=== PATIENT | male | born 1960 | race Caucasian/White ===

== ENCOUNTER 2016-12-29 03:02 | Emergency (ER) | payer BC ==
[~2016-12-29 03:02] MED LIST: ACET-1256 PO; AMOX500C3 PO
[2016-12-29] MEDS ORDERED: KETOROLAC TROMETHAMINE 30 MG/ML VIAL ONE (04:02)
[2016-12-29 04:47] LABS: MANUAL MICROSCOPIC REQUIRED? NO; REVIEW REQ? NO; URINE APPEARANCE CLEAR (CLEAR); URINE BILIRUBIN NEG (NEG); URINE COLOR YELLOW; URINE EPITHELIAL CELL AUTO 0-5 /lpf (0-5); URINE NITRITE NEG (NEG); URINE SPECIFIC GRAVITY 1.013 (1.000-1.030); UROBILINOGEN NEG (NEG)
[2016-12-29 05:23] LABS: ALT/SGPT 36 U/L (12-78); AST/SGOT 23 U/L (15-37); BLOOD UREA NITROGEN 14 mg/dl (7-18); BUN/CREATININE RATIO 14.7 (10-20); CARBON DIOXIDE 24 mmol/L (21-32); CHLORIDE 103 mmol/L (98-107); CREATININE 0.97 mg/dl (0.60-1.40); GLUCOSE 96 mg/dl (70-99); POTASSIUM 4.3 mmol/L (3.5-5.1); SODIUM 139 mmol/L (136-145)
[2016-12-29 05:25] LABS: ALKALINE PHOSPHATASE 79 U/L (45-117)
[2016-12-29 05:30] VITALS: BP 157/89; PULSE 62; O2SAT 95
[2016-12-29] MEDS ORDERED: AMOXICILLIN/CLAVULANATE TAB 875 MG TAB PO ONE (05:30)
[2016-12-29] MEDS ORDERED: AMOX875T PO (05:41)
[2016-12-29 06:42] LABS: BASO % 0.4 %; BASO ABS # 0.05 K/uL (0-0.2); COMPLETE YES; EOS % 2.2 %; HEMATOCRIT 42.1 % (42-52); IG% 0.4 %; LYMPH % 17.2 %; LYMPH ABS # 2.14 K/uL (1.2-3.4); MEAN CELL VOLUME 86.8 fL (80-100); MEAN CORPUSCULAR HEMOGLOBIN 31.3 pg (25-34); MEAN CORPUSCULAR HGB CONC 36.1 g/dl (32-36); MONO % 5.6 %; NEUT % 74.2 %; PLATELET COUNT 273 K/uL (130-400); RED BLOOD COUNT 4.85 M/uL (4.7-6.1); WHITE BLOOD COUNT 12.47 K/uL (4.8-10.8)
--- NOTE | 2016-12-29 06:48 | DIAGNOSTIC IMAGING REPORT ---
CT SCAN OF THE ABDOMEN AND PELVIS WITHOUT CONTRAST CLINICAL HISTORY: RIGH FLANK PAIN COMPARISON STUDY: 05/07/2014 TECHNIQUE: CT scan of the abdomen and pelvis was performed from the lung bases to the proximal femurs. Images are reviewed in the axial, sagittal, and coronal planes. IV contrast was not administered for this examination. CT DOSE: FINDINGS: Lower chest: There are minor bibasilar atelectatic changes. Liver: There is mild hepatic steatosis. No focal masses are visualized on this noncontrast study. Gallbladder: Unremarkable. Spleen: Normal in size and attenuation. Pancreas: Unremarkable. Adrenal glands: Unremarkable. Kidneys: There is a 2 cm hypodensity arising from the upper pole the right kidney posteriorly. This slightly exceeds water attenuation but nevertheless likely represents a cyst. There is no hydronephrosis. No renal calculi are visualized. No ureteral or bladder calculi are evident. Bowel: There are no transition zones indicate bowel obstruction. The appendix appears within normal limits. There is sigmoid wall thickening. There is infiltration of the perisigmoid fat. The findings are consistent with acute diverticulitis. There are no fluid collections to indicate a perisigmoid abscess. No free air is visualized. Peritoneum: There is no intraperitoneal free air or abdominal ascites. Vasculature: The abdominal aorta is normal in course and caliber. Adenopathy: None. Pelvic viscera: The bladder, and pelvic viscera are unremarkable. Skeletal structures: There is bilateral L5 spondylolysis. There is a grade 2/4 spondylolisthesis of L5 and S1. IMPRESSION: Acute sigmoid diverticulitis. Electronically signed by: Demetris Romo M.D. 12/29/2016 6:47 AM Dictated Date/Time: 12/29/2016 6:44 AM
--- NOTE | 2016-12-29 07:28 | EMERGENCY ROOM VISIT NOTE ---
History Report prepared by Mikki: Cedrick Gaona Under the Supervision of: Dr. Roxanna Diallo D.O. First contact with patient: 04:52 Chief Complaint: ABDOMINAL PAIN Stated Complaint: SEVERE ABDOMINAL PAIN,FLU LIKE SYMPTOMS History of Present Illness The patient is a 56 year old male who presents to the Emergency Room with complaints of intermittent lower abdominal pain that start yesterday afternoon. The patient describes the discomfort as pulsating in his lower abdomen. He notes that his symptoms worsened yesterday evening and his discomfort started to wrap around to his back. He also complains of cold-like symptoms including chills and body-aches. The patient notes that he had similar symptoms last month and after 4 days they resolved on their own. He denies nausea, vomiting, or urinary symptoms at this time. He has no history of UTIs. Source of History: patient Onset: yesterday afternoon Position: abdomen Quality: other (pulsating) Timing: intermittent, worsening Associated Symptoms: + back pain (radiation to back), + chills, No nausea, No urinary symptoms, No vomiting Note: Other associated symptoms: cold-like symptoms, body aches Review of Systems See HPI for pertinent positives & negatives. A total of 10 systems reviewed and were otherwise negative. Past Medical & Surgical Medical Problems: (1) Bacteremia (2) Dental infection (3) Stroke Family History Cancer Diabetes mellitus FH: heart disease Hypertension Social History Smoking Status: Never Smoker Alcohol Use: none Drug Use: none Marital Status: Housing Status: lives with family Occupation Status: employed Current/Historical Medications Scheduled Amoxicillin (Amoxil), 2,000 MG PO UD Amoxicillin & Pot Clavulanate (Augmentin 875-125 mg), 875 MG PO BID Allergies Coded Allergies: No Known Allergies (Verified , 12/29/16) Physical Exam Vital Signs Date Time Temp Pulse Resp B/P Pulse Ox O2 Delivery O2 Flow Rate FiO2 12/29/16 05:30 62 18 157/89 95 Room Air Pain Rating (0-10): 3.0 Physical Exam HEENT: Head - normocephalic and atraumatic Pupils are equal, round, and reactive to light. Extraocular eye muscles are intact, and sclera are anicteric. Nose - moist nasal mucosa without discharge. Mouth - moist buccal mucosa. Oropharynx is nonerythematous and there is no tonsillar exudate or edema noted. Neck: Supple; no JVD, nuchal rigidity, cervical lymphadenopathy. Heart: Regular rate and rhythm. There is a normal S1 and S2 with no murmurs, clicks, or gallops appreciated. Lungs: Clear to auscultation bilaterally with no wheezes, rales, or rhonchi. Abdomen: Soft, diffuse abdominal tenderness most concentrated in suprapubic region, nondistended, with good bowel sounds. There is no guarding, rigidity, or rebound noted. Extremities: No evidence of cyanosis, clubbing, or edema. There are easily palpable peripheral pulses. Skin: warm and dry with good turgor and no rashes. Medical Decision & Procedures ER Provider Diagnostic Interpretation: CT results as stated below per my review and radiologist interpretation: CT Abdomen & Pelvis: Acute diverticulitis involving the sigmoid colon. No abscess. No appendicitis, colitis, diverticulitis or bowel obstruction. No obstructive uropathy. Small exophytic cyst at right upper renal pole. Pancreas and gallbladder are unremarkable. 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 Laboratory Results 12/29/16 04:07 Red Blood Count 4.85, Mean Corpuscular Volume 86.8, Mean Corpuscular Hemoglobin 31.3, Mean Corpuscular Hemoglobin Concent 36.1, Mean Platelet Volume 10.0, Neutrophils (%) (Auto) 74.2, Lymphocytes (%) (Auto) 17.2, Monocytes (%) (Auto) 5.6, Eosinophils (%) (Auto) 2.2, Basophils (%) (Auto) 0.4, Neutrophils # (Auto) 9.26, Lymphocytes # (Auto) 2.14, Monocytes # (Auto) 0.70, Eosinophils # (Auto) 0.27, Basophils # (Auto) 0.05 12/29/16 04:07 Test 12/29/16 04:07 White Blood Count 12.47 K/uL (4.8-10.8) Red Blood Count 4.85 M/uL (4.7-6.1) Hemoglobin 15.2 g/dL (14.0-18.0) Hematocrit 42.1 % (42-52) Mean Corpuscular Volume 86.8 fL (80-100) Mean Corpuscular Hemoglobin 31.3 pg (25-34) Mean Corpuscular Hemoglobin Concent 36.1 g/dl (32-36) Platelet Count 273 K/uL (130-400) Mean Platelet Volume 10.0 fL (7.4-10.4) Neutrophils (%) (Auto) 74.2 % Lymphocytes (%) (Auto) 17.2 % Monocytes (%) (Auto) 5.6 % Eosinophils (%) (Auto) 2.2 % Basophils (%) (Auto) 0.4 % Neutrophils # (Auto) 9.26 K/uL (1.4-6.5) Lymphocytes # (Auto) 2.14 K/uL (1.2-3.4) Monocytes # (Auto) 0.70 K/uL (0.11-0.59) Eosinophils # (Auto) 0.27 K/uL (0-0.5) Basophils # (Auto) 0.05 K/uL (0-0.2) RDW Standard Deviation 41.3 fL (36.4-46.3) RDW Coefficient of Variation 13.0 % (11.5-14.5) Immature Granulocyte % (Auto) 0.4 % Immature Granulocyte # (Auto) 0.05 K/uL (0.00-0.02) Nucleated RBC Absolute Count (auto) 0.00 K/uL (0-0) Nucleated Red Blood Cells % 0.0 % Urine Color YELLOW Urine Appearance CLEAR (CLEAR) Urine pH 5.0 (4.5-7.5) Urine Specific [place] 1.013 (1.000-1.030) Urine Protein NEG (NEG) Urine Glucose (UA) NEG (NEG) Urine Ketones NEG (NEG) Urine Occult Blood TRACE (NEG) Urine Nitrite NEG (NEG) Urine Bilirubin NEG (NEG) Urine Urobilinogen NEG (NEG) Urine Leukocyte Esterase NEG (NEG) Urine WBC (Auto) 0 /hpf (0-5) Urine RBC (Auto) 0-4 /hpf (0-4) Urine Hyaline Casts (Auto) 0 /lpf (0-5) Urine Epithelial Cells (Auto) 0-5 /lpf (0-5) Urine Bacteria (Auto) NEG (NEG) Anion Gap 12.0 mmol/L (3-11) Estimated GFR () 100.7 Estimated GFR (Non- 86.9 BUN/Creatinine Ratio 14.7 (10-20) Calcium Level 9.0 mg/dl (8.5-10.1) Total Bilirubin 0.4 mg/dl (0.2-1) Direct Bilirubin 0.1 mg/dl (0-0.2) Aspartate Amino Transf (AST/SGOT) 23 U/L (15-37) Alanine Aminotransferase (ALT/SGPT) 36 U/L (12-78) Alkaline Phosphatase 79 U/L (45-117) Total Protein 8.0 gm/dl (6.4-8.2) Albumin 4.2 gm/dl (3.4-5.0) Lipase 147 U/L (73-393) Laboratory results per my review. Medications Administered Medications (Trade) Dose Ordered Sig/Deborah Route Start Time Stop Time Status Last Admin Dose Admin Amoxicillin/ Clavulanate Potassium (Augmentin Tab) 875 mg ONE ONCE PO 12/29/16 05:30 12/29/16 05:31 DC 12/29/16 05:29 875 MG Procedure Augmentin po ED Course 0402: Past medical records reviewed. The patient was evaluated in room B12. A complete history and physical exam was performed. An IV lock was initiated and labs are drawn as above. A urine specimen was obtained. The patient went for CT scan of the abdomen/pelvis. 0445: I reevaluated the patient at this time and he is resting. 0530: Ordered Augmentin tab 875 mg PO. 0634: Upon reevaluation, the patient is resting comfortable. I discussed findings and results with him. He verbalized agreement of the treatment plan. The patient was discharged home. Medical Decision The patient is a 56 year old male who presents to the ED with complaints of intermittent lower abdominal pain. Differential diagnoses include: cystitis, pyelonephritis, kidney stone, diverticulitis, urinary outlet obstruction. Labs reviewed by me: Bladder scan 116, white count 12.4, stable H&H, normal renal function, normal glucose, normal LFTs and lipase. Urinalysis is unremarkable. This is a 56-year-old male patient presents to the emergency department with worsening suprapubic abdominal pain. CT scan shows acute diverticulitis. The patient will be treated with oral Augmentin. He declined wanting anything stronger for pain to use at home. Impression Primary Impression: Sigmoid diverticulitis Scribe Attestation The scribe's documentation has been prepared under my direction and personally reviewed by me in its entirety. I confirm that the note above accurately reflects all work, treatment, procedures, and medical decision making performed by me. Departure Information Dispostion Home / Self-Care Prescriptions Amoxicillin & Pot Clavulanate (Augmentin 875-125 mg) 1 Tab Tab 875 MG PO BID, #20 TAB Prov: Roxanna Diallo D.Oumar 12/29/16 Forms Call Back Authorization, HOME CARE DOCUMENTATION FORM, IMPORTANT VISIT INFORMATION Patient Instructions Diverticulosis Diverticulitis, My [facility] Additional Instructions Rest. Take Augmentin twice a day. Use tylenol or motrin for pain Return to the ER if symptoms worsen.
== END 2016-12-29 05:48 | disposition home or self-care (01) ==
LOC: C.EDB 03:02
DX: K57.32 Diverticulitis of large intestine without perforation or abscess without bleeding (principal); Z86.73 Personal history of transient ischemic attack (TIA), and cerebral infarction without residual deficits; Z80.9 Family history of malignant neoplasm, unspecified; Z83.3 Family history of diabetes mellitus; Z82.49 Family history of ischemic heart disease and other diseases of the circulatory system

== ENCOUNTER 2018-01-01 05:39 | Inpatient (IN) | payer BC, OTHER ==
[2018-01-01] VITALS (10 sets, daily range): BP systolic 128–155; BP diastolic 72–87; PULSE 48–54; TEMP 36.4–36.6; O2SAT 96; Ht 162.6 cm; Wt 92.5 kg
[~2018-01-01] VITALS: Ht 162.6 cm; Wt 92.5 kg
[~2018-01-01 05:39] MED LIST changes: -ACET-1256 PO
--- NOTE | 2018-01-01 06:03 | EMERGENCY ROOM VISIT NOTE ---
History Report prepared by Mikki: Naseem Grant Under the Supervision of: Dr. Ana Rosa Mott D.O. First contact with patient: 05:44 Chief Complaint: CHEST PAIN Stated Complaint: CHEST PAINS Nursing Triage Summary: pt with chest pain that started yesterday after digging a hole to bury a dog. midsternal pain that radiates into back. pt took aspirin yesterday after pain started. pt reports pain woke him twice throughout the night. hx of pericarditis. History of Present Illness The patient is a 57 year old male who presents to the Emergency Room with complaints of constant chest pain beginning yesterday. The patient states that he was digging a hole yesterday to bury his dog. He notes that about an hour later, he experienced a sharp pain in the center of his chest that felt like it was going to his back. He reports that he took aspirin for his pain and states that his pain went away. He notes that he was able to go to bed tonight symptom free, but reports that he was woken up twice at 0300 and 0530 due to his chest pain. The patient states that his chest pain causes a pressure in his back. He also complains of lightheadedness and nausea. He notes that he has a history of pericarditis a few years ago and has been having more heartburn than usual for the last few weeks. He reports that he has not had heartburn that was this consistent before. The patient states that his current symptoms do not feel similar to his usual heartburn symptoms. He notes that his father and grandfather both had heart attacks around his age. He reports that he had a stress test done two years ago to monitor his cardiac health. Pt denies headache , change in vision, fevers, shortness of breath, cough, vomiting, diarrhea, pain with urination, change in bowels, leg edema, melena, and recent long travel. Source of History: patient Onset: yesterday Position: chest (center) Quality: pressure, sharp Timing: constant Modifying Factors (Relieving): other (aspirin) Associated Symptoms: + nausea, + back pain, No fevers, No headache, No cough , No SOB, No vomiting, No melena, No diarrhea, No urinary symptoms Note: He also complains of lightheadedness. He denies any change in vision, change in his bowels, and leg edema. Review of Systems See HPI for pertinent positives & negatives. A total of 10 systems reviewed and were otherwise negative. Past Medical & Surgical Medical Problems: (1) Bacteremia (2) Dental infection (3) Elevated troponin (4) Pericarditis (5) Stroke Family History Cancer Diabetes mellitus FH: heart disease Heart attack Hypertension Social History Smoking Status: Never Smoker Alcohol Use: none Drug Use: none Marital Status: Housing Status: lives with family Occupation Status: employed Current/Historical Medications Scheduled Amoxicillin (Amoxil), 2,000 MG PO UD Aspirin (Aspirin Ec), 81 MG PO DAILY Atorvastatin (Lipitor), 40 MG PO DAILY Allergies Coded Allergies: No Known Allergies (Verified , 01/01/18) Physical Exam Vital Signs Date Time Temp Pulse Resp B/P (MAP) Pulse Ox O2 Delivery O2 Flow Rate FiO2 01/01/18 07:30 53 18 146/91 97 Room Air 01/01/18 06:39 50 15 124/71 96 Room Air 01/01/18 06:24 52 20 148/91 97 Room Air 01/01/18 06:00 49 16 141/96 97 Room Air 01/01/18 05:53 50 01/01/18 05:45 97 Room Air 01/01/18 05:45 37.1 58 22 176/99 98 Room Air 01/01/18 05:45 99 Room Air Physical Exam GENERAL: alert, well appearing, well nourished, no distress, non-toxic EYE EXAM: normal conjunctiva, PERRL and EOM's grossly intact OROPHARYNX: no exudate, no erythema, lips, buccal mucosa, and tongue normal and mucous membranes are moist NECK: supple, no nuchal rigidity, no adenopathy, non-tender LUNGS: Clear to auscultation. Normal chest wall mechanics HEART: no murmurs, S1 normal and S2 normal ABDOMEN: abdomen soft, non-tender, normo-active bowel sounds, no masses, no rebound or guarding. BACK: Back is symmetrical on inspection and there is no deformity, no midline tenderness, no CVA tenderness. CHEST: Slight discomfort to palpation of right sternal border. SKIN: no rashes and no bruising UPPER EXTREMITIES: upper extremities are grossly normal. LOWER EXTREMITIES: No pitting edema. NEURO EXAM: Normal sensorium, cranial nerves II-XII grossly intact, normal speech, no gross weakness of arms, no gross weakness of legs. Medical Decision & Procedures ER Provider Diagnostic Interpretation: Radiology results have been interpreted by the radiologist and reviewed by me. CHEST ONE VIEW PORTABLE FINDINGS: Cardiac silhouette top normal in size. Lungs and pleural spaces clear. Osseous structures normal. Upper abdomen normal. IMPRESSION: 1. No acute cardiopulmonary disease. Electronically signed by: Jose Tomas M.D. 01/01/2018 6:17 AM Laboratory Results 01/01/18 05:45 Red Blood Count 4.50, Mean Corpuscular Volume 91.3, Mean Corpuscular Hemoglobin 31.6, Mean Corpuscular Hemoglobin Concent 34.5, Mean Platelet Volume 10.2, Neutrophils (%) (Auto) 47.4, Lymphocytes (%) (Auto) 39.5, Monocytes (%) (Auto) 6.3, Eosinophils (%) (Auto) 4.9, Basophils (%) (Auto) 1.4, Neutrophils # (Auto) 3.45, Lymphocytes # (Auto) 2.88, Monocytes # (Auto) 0.46, Eosinophils # (Auto) 0.36, Basophils # (Auto) 0.10 01/01/18 05:45 Test 01/01/18 05:45 White Blood Count 7.29 K/uL (4.8-10.8) Red Blood Count 4.50 M/uL (4.7-6.1) Hemoglobin 14.2 g/dL (14.0-18.0) Hematocrit 41.1 % (42-52) Mean Corpuscular Volume 91.3 fL (80-100) Mean Corpuscular Hemoglobin 31.6 pg (25-34) Mean Corpuscular Hemoglobin Concent 34.5 g/dl (32-36) Platelet Count 238 K/uL (130-400) Mean Platelet Volume 10.2 fL (7.4-10.4) Neutrophils (%) (Auto) 47.4 % Lymphocytes (%) (Auto) 39.5 % Monocytes (%) (Auto) 6.3 % Eosinophils (%) (Auto) 4.9 % Basophils (%) (Auto) 1.4 % Neutrophils # (Auto) 3.45 K/uL (1.4-6.5) Lymphocytes # (Auto) 2.88 K/uL (1.2-3.4) Monocytes # (Auto) 0.46 K/uL (0.11-0.59) Eosinophils # (Auto) 0.36 K/uL (0-0.5) Basophils # (Auto) 0.10 K/uL (0-0.2) RDW Standard Deviation 43.8 fL (36.4-46.3) RDW Coefficient of Variation 13.3 % (11.5-14.5) Immature Granulocyte % (Auto) 0.5 % Immature Granulocyte # (Auto) 0.04 K/uL (0.00-0.02) Prothrombin Time 10.1 SECONDS (9.0-12.0) Prothromb Time International Ratio 1.0 (0.9-1.1) Activated Partial Thromboplast Time 24.4 SECONDS (21.0-31.0) Partial Thromboplastin Ratio 0.9 Anion Gap 7.0 mmol/L (3-11) Est Creatinine Clear Calc Drug Dose 89.0 ml/min Estimated GFR () 103.9 Estimated GFR (Non- 89.6 BUN/Creatinine Ratio 17.3 (10-20) Calcium Level 8.6 mg/dl (8.5-10.1) Magnesium Level 2.1 mg/dl (1.8-2.4) Total Bilirubin 0.5 mg/dl (0.2-1) Aspartate Amino Transf (AST/SGOT) 23 U/L (15-37) Alanine Aminotransferase (ALT/SGPT) 37 U/L (12-78) Alkaline Phosphatase 59 U/L (45-117) Pro-B-Type Natriuretic Peptide 119 pg/ml (0-900) Total Protein 7.7 gm/dl (6.4-8.2) Albumin 3.8 gm/dl (3.4-5.0) Globulin 3.9 gm/dl (2.5-4.0) Albumin/Globulin Ratio 1.0 (0.9-2) Laboratory results per my review. Medications Administered Medications (Trade) Dose Ordered Sig/Deborah Route Start Time Stop Time Status Last Admin Dose Admin Nitroglycerin (Nitroglycerin 2% Oint) 1 inch NOW ONCE EXT 01/01/18 06:15 01/01/18 06:16 DC 01/01/18 06:12 1 INCH Famotidine (Pepcid 20mg Iv Push) 20 mg ONE STAT IV 01/01/18 06:22 35/18 06:23 DC 01/01/18 06:25 20 MG Acetaminophen (Tylenol Tab) 650 mg Q4H PRN PO 01/01/18 07:30 01/01/18 16:31 DC 01/01/18 13:25 650 MG Laboratory results per my review. ECG Per My Interpretation Indication: chest pain Rate (beats per minute): 49 Rhythm: sinus bradycardia Findings: T-wave inversion (lead 1, AVL, v5, and v6; inverted t in lead 1 and AVL were seen in old EKG), other (Normal axis, normal intervals, no acute ST elevation) Change: EKG #2: Sinus armando, 48, normal axis, normal intervals, inverted T waves again noted at 1 and AVL, T waves in v5 and v6 now upright. EKG #3: No significant change compared to EKG #2. ED Course 0548: The patient was evaluated in room A2. A complete history and physical exam was performed. 0615: Nitroglycerin 1 inch EXT 0622: Famotidine 20mg IV 0640: Fentanyl Citrate 50 mcg IV 0651: I reevaluated and updated the patient. He notes that the pressure is gone. 0708: I rechecked the patient. He currently has no symptoms. 0719: I spoke to Dr. Grier - Cardiology, [facility] 0722: Heparin Sodium/Dextrose 1 ea N/A 0724: Upon reevaluation, the patient is stable. I discussed the findings and the treatment plan with the patient. He expresses agreement and understanding. I spoke with Dr. Church of the [facility] Hospitalist [facility]. The patient will be evaluated for further management. 0741: I reevaluated and updated the patient. He said he had a brief episode of sharp chest pain that is now gone. Medical Decision Differential diagnosis: Etiologies such as cardiac ischemia, aortic dissection, pulmonary embolism, pneumonia, pneumothorax, musculoskeletal, infections, pericarditis, myocarditis , esophageal rupture, gastrointestinal, as well as others were entertained. Patient with concerning story and presentation here. No acute ST elevation to warrant activation of a heart alert. Patient hemodynamically stable. Patient' s symptoms improved following nitroglycerin. Patient took aspirin himself prior to arrival. EKG showed improved changes following administration of nitroglycerin. Blood pressure improved also. I do not suspect hypertensive urgency/emergency. I do not suspect dissection or other vascular pathology. I do not suspect PE. Patient with no shortness of breath, no hypoxia, no tachycardia. Patient given Pepcid as a precaution given recent admission of possible GERD, however I think given his description, and lack of association with food or specifically acidic diet, that this may be the initial presentation of his anginal equivalent. Patient's only risk factors none at this time are age and some family history. Patient agreeable with plan for additional medicine and cardiology evaluation with possible need for intervention including cardiac cath. Case discussed with admitting hospitalist as well as on-call [facility] cardiology. Patient started on heparin, despite prior history of small intracranial hemorrhage, discussed with admitting hospitalist, patient still started on heparin but without bolus. Patient never found to have aneurysm or other lesion precipitating bleed. I feel the benefits of anticoagulation in the setting of likely ACS outweigh the possible but low risk of recurrent intracranial hemorrhage. Beta-rosi not added due to patient's bradycardia and control blood pressure on nitroglycerin. Medication Reconcilliation Current Medication List: was personally reviewed by me Blood Pressure Screening Patient's blood pressure: Normal blood pressure Blood pressure disposition: Did not require urgent referral Consults Time Called: 709 Consulting Physician: Dr. Cherrie De Los Santos Cardiology, [facility] Returned Call: 07 I reviewed the patient's case with Dr. Cherrie Luevano, [facility]. Additional Consults: Time Called: 718 Consulted Physician: JUAN Restrepo Returned Call: 07 Additional Comments: I reviewed the patient's case with JUAN Restrepo. He will evaluate the patient for further management. Impression Primary Impression: NSTEMI (non-ST elevated myocardial infarction) Additional Impression: Chest pain Scribe Attestation The scribe's documentation has been prepared under my direction and personally reviewed by me in its entirety. I confirm that the note above accurately reflects all work, treatment, procedures, and medical decision making performed by me. Departure Information Dispostion Being Evaluated By Hospitalist Prescriptions Atorvastatin (LIPITOR) 40 Mg Tab 40 MG PO DAILY, #90 TAB 3 Refills Prov: Jorge Church M.D. 01/01/18 Aspirin (ASPIRIN EC) 81 Mg Tab 81 MG PO DAILY, #200 DOSE 3 Refills Prov: Jorge Church M.D. 01/01/18 Referrals Madhav Jang D.O. (PCP) Patient Instructions My [facility] Problem Qualifiers Additional Impression: Chest pain Chest pain type: unspecified Qualified Codes: R07.9 - Chest pain, unspecified
[2018-01-01] MEDS ORDERED: NITROGLYCERIN 2% OINTMENT 30GM TUBE EXT ONE (06:15)
--- NOTE | 2018-01-01 06:18 | DIAGNOSTIC IMAGING REPORT ---
CHEST ONE VIEW PORTABLE CLINICAL HISTORY: 57 years-old Male presenting with chest pain. TECHNIQUE: Portable upright AP view of the chest was obtained. COMPARISON: 09/20/2016. FINDINGS: Cardiac silhouette top normal in size. Lungs and pleural spaces clear. Osseous structures normal. Upper abdomen normal. IMPRESSION: 1. No acute cardiopulmonary disease. Electronically signed by: Jose Tomas M.D. 01/01/2018 6:17 AM Dictated Date/Time: 01/01/2018 6:17 AM
[2018-01-01] MEDS ORDERED: FAMOTIDINE 20MG/5ML IV PUSH IV STA (06:22)
[2018-01-01 06:26] LABS: BASO % 1.4 %; EOS % 4.9 %; EOS ABS # 0.36 K/uL (0-0.5); HEMATOCRIT 41.1 % (42-52); HEMOGLOBIN 14.2 g/dL (14.0-18.0); IG# 0.04 K/uL (0.00-0.02); LYMPH % 39.5 %; LYMPH ABS # 2.88 K/uL (1.2-3.4); MEAN CELL VOLUME 91.3 fL (80-100); MEAN CORPUSCULAR HEMOGLOBIN 31.6 pg (25-34); MEAN CORPUSCULAR HGB CONC 34.5 g/dl (32-36); MEAN PLATELET VOLUME 10.2 fL (7.4-10.4); MONO % 6.3 %; MONO ABS # 0.46 K/uL (0.11-0.59); NEUT % 47.4 %; NEUT ABS # 3.45 K/uL (1.4-6.5); PLATELET COUNT 238 K/uL (130-400); RED CELL DISTRIBUTION WIDTH CV 13.3 % (11.5-14.5); RED CELL DISTRIBUTION WIDTH SD 43.8 fL (36.4-46.3); WHITE BLOOD COUNT 7.29 K/uL (4.8-10.8)
[2018-01-01] MEDS ORDERED: FENTANYL CITRATE INJ 50 MCG/1 ML 2 ML VIAL IV STA ×2 (06:40→07:33)
[2018-01-01 06:46] LABS: ALBUMIN 3.8 gm/dl (3.4-5.0); CALCIUM 8.6 mg/dl (8.5-10.1); CREATININE 0.94 mg/dl (0.60-1.40); POTASSIUM 4.1 mmol/L (3.5-5.1)
[2018-01-01 06:55] LABS: TOTAL PROTEIN 7.7 gm/dl (6.4-8.2)
[2018-01-01] MEDS ORDERED: SODIUM CHLORIDE 0.9% 1000ML 1,000 ML IV STA (07:15)
[2018-01-01] MEDS ORDERED: POLYETHYLENE (MIRALAX) 17 GM PACK PO PRN (07:30)
[2018-01-01] MEDS ORDERED: ONDANSETRON INJ 2 MG/ML 2 ML VIAL IV PRN (07:30)
[2018-01-01 07:36] LABS: PTT PATIENT 24.4 SECONDS (21.0-31.0)
[2018-01-01] MEDS ORDERED: LORAZEPAM 0.5 MG TAB PO PRN (07:45)
[2018-01-01] MEDS ORDERED: MoRPHine SULFATE 4 MG/ML 1 ML CARP\\VIAL IV PRN (07:45)
[2018-01-01] MEDS ORDERED: METOPROLOL TARTRATE 1 MG/ML VIAL IV PRN (07:45)
[2018-01-01] MEDS ORDERED: NITROGLYCERIN 0.4 MG SL PER TAB CHARGE SL PRN (07:45)
[2018-01-01] MEDS ORDERED: MoRPHine SULFATE 2 MG/ML CARP IV PRN (07:45)
--- NOTE | 2018-01-01 08:13 | History and Physical ---
History & Physical Date & Time of Service: Jan 01, 2018 at 08:07 Chief Complaint: Chest Pains Primary Care Physician: Madhav Jang D.O. History of Present Illness Patient presents to the ER after stuttering chest pain radiating to his back over the last 1 day. Patient states that he also had a few days worth of preceding indigestion. One day prior to admission the patient was digging in his yard where he developed some chest discomfort he took some aspirin and it went away. Then throughout the evening hours at night he was awoken on 2 occasions with chest pain radiating to his back. Upon presentation to the ER he had bradycardia with lateral T-wave inversions associated with some chest pain which then resolved with nitroglycerin paste and a T-wave inversions also resolved. He is a minorly elevated troponin on presentation currently is symptom-free he has a significant past history of a posterior fossa hemorrhage in 2009 without any significant pathology or trauma to explain. 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 Patient has a family history of his father having an KS at age 57 he has not had any tobacco exposure his cholesterol is moderate at this time with a total of 215 and LDL of 133 Family History Cancer Diabetes mellitus FH: heart disease Heart attack Hypertension Social History Smoking Status: Never Smoker Drug Use: none Marital Status: Housing status: lives with family Occupational Status: employed Immunizations History of Influenza Vaccine: No History of Tetanus Vaccine?: Unknown History of Pneumococcal: No History of Hepatitis B Vaccine: Unknown Allergies Coded Allergies: No Known Allergies (Verified , 01/01/18) Home Medications Scheduled Amoxicillin (Amoxil), 2,000 MG PO UD Review of Systems ROS: well nourished well developed. No double vision blurry vision patient has a headache from his nitroglycerin No problems with speech or swallowing No palpitations, but has had substernal chest pain and pressure radiating to his back No Wheezing or breathing issues No abdominal pain nausea vomiting diarrhea changes in appetite or weight No burning urine urine frequency or changes in color No focal joint pain or muscle pain No skin rashes or oral lesions No unusual bruising or bleeding No focused back pain or numbness or loss of strength No changes in memory or confusion Physical Exam Vital Signs Date Time Temp Pulse Resp B/P (MAP) Pulse Ox O2 Delivery O2 Flow Rate FiO2 01/01/18 07:30 53 18 146/91 97 Room Air 01/01/18 06:39 50 15 124/71 96 Room Air 01/01/18 06:24 52 20 148/91 97 Room Air 01/01/18 06:00 49 16 141/96 97 Room Air 01/01/18 05:53 50 01/01/18 05:45 97 Room Air 01/01/18 05:45 37.1 58 22 176/99 98 Room Air 01/01/18 05:45 99 Room Air General Appearance: WD/WN, no apparent distress Head: normocephalic, atraumatic Eyes: normal inspection, PERRL, EOMI, sclerae normal (Straight) Neck: supple, no JVD Respiratory/Chest: chest non-tender, lungs clear, normal breath sounds Cardiovascular: regular rate, rhythm, no murmur Abdomen/GI: normal bowel sounds, non tender, soft Back: no CVA tenderness, no muscle spasm Extremities/Musculoskelatal: no pedal edema, normal range of motion Neurologic/Psych: alert, oriented x 3 Skin: normal color, warm/dry, no rash Diagnostics Laboratory Results Results Past 24 Hours Test 01/01/18 05:45 Range/Units White Blood Count 7.29 4.8-10.8 K/uL Red Blood Count 4.50 4.7-6.1 M/uL Hemoglobin 14.2 14.0-18.0 g/dL Hematocrit 41.1 42-52 % Mean Corpuscular Volume 91.3 80-100 fL Mean Corpuscular Hemoglobin 31.6 25-34 pg Mean Corpuscular Hemoglobin Concent 34.5 32-36 g/dl Platelet Count 238 130-400 K/uL Mean Platelet Volume 10.2 7.4-10.4 fL Neutrophils (%) (Auto) 47.4 % Lymphocytes (%) (Auto) 39.5 % Monocytes (%) (Auto) 6.3 % Eosinophils (%) (Auto) 4.9 % Basophils (%) (Auto) 1.4 % Neutrophils # (Auto) 3.45 1.4-6.5 K/uL Lymphocytes # (Auto) 2.88 1.2-3.4 K/uL Monocytes # (Auto) 0.46 0.11-0.59 K/uL Eosinophils # (Auto) 0.36 0-0.5 K/uL Basophils # (Auto) 0.10 0-0.2 K/uL RDW Standard Deviation 43.8 36.4-46.3 fL RDW Coefficient of Variation 13.3 11.5-14.5 % Immature Granulocyte % (Auto) 0.5 % Immature Granulocyte # (Auto) 0.04 0.00-0.02 K/uL Prothrombin Time 10.1 9.0-12.0 SECONDS Prothromb Time International Ratio 1.0 0.9-1.1 Activated Partial Thromboplast Time 24.4 21.0-31.0 SECONDS Partial Thromboplastin Ratio 0.9 Sodium Level 138 136-145 mmol/L Potassium Level 4.1 3.5-5.1 mmol/L Chloride Level 105 98-107 mmol/L Carbon Dioxide Level 26 21-32 mmol/L Anion Gap 7.0 3-11 mmol/L Blood Urea Nitrogen 16 7-18 mg/dl Creatinine 0.94 0.60-1.40 mg/dl Est Creatinine Clear Calc Drug Dose 89.0 ml/min Estimated GFR () 103.9 Estimated GFR (Non- 89.6 BUN/Creatinine Ratio 17.3 10-20 Random Glucose 86 70-99 mg/dl Calcium Level 8.6 8.5-10.1 mg/dl Magnesium Level 2.1 1.8-2.4 mg/dl Total Bilirubin 0.5 0.2-1 mg/dl Aspartate Amino Transf (AST/SGOT) 23 15-37 U/L Alanine Aminotransferase (ALT/SGPT) 37 12-78 U/L Alkaline Phosphatase 59 45-117 U/L Troponin I 0.080 0-0.045 ng/ml Pro-B-Type Natriuretic Peptide 119 0-900 pg/ml Total Protein 7.7 6.4-8.2 gm/dl Albumin 3.8 3.4-5.0 gm/dl Globulin 3.9 2.5-4.0 gm/dl Albumin/Globulin Ratio 1.0 0.9-2 CXR normal (Comparison to previous portable does not reveal significant mediastinal widening) other ( bradycardia and lateral T-wave inversions which resolved) Impression Assessment and Plan 57-year-old male with dynamic EKG changes positive troponin on serum testing Coronary artery disease this patient will be admitted to our facility nitroglycerin paste for continued emergent echo be undertaken to determine if there is any regional wall abnormalities also to evaluate his aortic root. The radiation of pain to his back bring some concern for dissection and he has had previous endocarditis. We will hold off on heparin at this time as the patient is symptom-free and his EKG changes have resolved given the fact that we are evaluating for dissection and also his previous history of intercerebral bleed so we will watch him cautiously. If his headache continues to worsen with his nitroglycerin we may remove the nitroglycerin and/or get a CT scan of his brain. Currently DVT prevention initially was to be heparin drip will convert this to heparin subcu Patient is a full code Of note patient has no neurological deficits from his previous posterior fossa hemorrhage Advanced Directives Existing Living Will: No Existing Power of Softball Umpire: No Resuscitation Status VTE Prophylaxis Will order VTE Prophylaxis: Yes
[2018-01-01] MEDS ORDERED: ASPIRIN 324 MG CHEW PO STA (08:47)
[2018-01-01] MEDS: ACETAMINOPHEN 325 MG TAB PO PRN ×2 (08:59→13:25)
[2018-01-01] MEDS ORDERED: ASPIRIN 325 MG ECTAB PO SCH (09:00)
--- NOTE | 2018-01-01 09:52 | ECHOCARDIOGRAM REPORT ---
*NOTICE TO RECEIVING DEMOCRAT AGENCY This information is strictly Confidential and protected under [place] law. [place] law prohibits you from making any further disclosure of this information unless further disclosure is expressly permitted by the written consent of the person to whom it pertains or is authorized by law. A general authorization for the release of medical or other information is not sufficient for this purpose. Hospital accepts no responsibility if the information is made available to any other person, INCLUDING THE PATIENT. Interpretation Summary * Name: AVELINA LIMON Study Date: 01/01/2018 07:58 AM BP: 124/71 mmHg * Patient Location: [facility] HR: 52 * : 1960 (M/d/yyyy) Gender: Male Height: 67 in * Age: 57 yrs Ethnicity: CA Weight: 195 lb * Ordering Physician: Jorge Church * Referring Physician: Self, Referred * Performed By: Lashanda Zamorano RCS * * Reason For Study: CHEST PAIN * BSA: 2.0 m2 * -- Conclusions -- * The left ventricle is normal in size. * There is mild concentric left ventricular hypertrophy. * Left ventricular systolic function is normal. * LVEF 65% * The left ventricular wall motion is normal. * The right ventricle is normal in size and function. * The right ventricular systolic function is normal as assessed by tricuspid annular plane systolic excursion (TAPSE) (normal >1.5 cm). * The aortic valve is tricuspid. The leaflet thickness if normal. There is no aortic stenosis, and no significant insufficiency. * Mild aortic regurgitation. * PHT > 700 ms * Normal diastolic function. Procedure Details * A complete two-dimensional transthoracic echocardiogram was performed (2D, M-mode, Doppler and color flow Doppler). Left Ventricle * The left ventricle is normal in size. * There is mild concentric left ventricular hypertrophy. * Left ventricular systolic function is normal. * LVEF 65% * The left ventricular wall motion is normal. Right Ventricle * The right ventricle is normal in size and function. * The right ventricular systolic function is normal as assessed by tricuspid annular plane systolic excursion (TAPSE) (normal >1.5 cm). Atria * The left atrial size is normal. * Right atrial size is normal. Mitral Valve * The mitral valve is grossly normal. * There is mild mitral regurgitation. Tricuspid Valve * The tricuspid valve is not well visualized, but is grossly normal. * There is trace tricuspid regurgitation. Aortic Valve * The aortic valve is tricuspid. The leaflet thickness if normal. There is no aortic stenosis, and no significant insufficiency. * Mild aortic regurgitation. * PHT > 700 ms Pulmonic Valve * The pulmonic valve is not well seen, but is grossly normal. * Trace pulmonic valvular regurgitation. Great Vessels * Mild aortic root dilatation. Pericardium/Pleural * There is no pericardial effusion. Great Vessels * Normal inferior vena cava size and collapsability with sniff indicates a normal right atrial pressure of 3 mmHg Left Ventricular Diastolic Function * Normal diastolic function. MMode 2D Measurements and Calculations IVSd 1.3 cm IVSs 1.7 cm LVIDd 5.0 cm LVIDs 3.2 cm LVPWd 1.3 cm LVPWs 1.7 cm IVS/LVPW 1.1 FS 35.9 % EDV(Teich) 118.3 ml ESV(Teich) 41.2 ml EF(Teich) 65.2 % EDV(cubed) 125.0 ml ESV(cubed) 33.0 ml EF(cubed) 73.6 % % IVS thick 27.0 % % LVPW thick 34.0 % LV mass(C)d 263.8 grams LV mass(C)dI 131.9 grams/m\S\2 LV mass(C)s 214.1 grams LV mass(C)sI 107.0 grams/m\S\2 SV(Teich) 77.1 ml SI(Teich) 38.5 ml/m\S\2 SV(cubed) 92.0 ml SI(cubed) 46.0 ml/m\S\2 Ao root diam 3.7 cm Ao root area 10.8 cm\S\2 ACS 2.6 cm LA dimension 3.2 cm LA/Ao 0.87 LVOT diam 2.0 cm LVOT area 3.3 cm\S\2 LVAd ap4 34.4 cm\S\2 LVLd ap4 8.4 cm EDV(MOD-sp4) 113.6 ml EDV(sp4-el) 119.3 ml LVAs ap4 19.7 cm\S\2 LVLs ap4 6.8 cm ESV(MOD-sp4) 48.2 ml ESV(sp4-el) 48.1 ml EF(MOD-sp4) 57.5 % EF(sp4-el) 59.7 % LVAd ap2 37.6 cm\S\2 LVLd ap2 8.7 cm EDV(MOD-sp2) 131.0 ml EDV(sp2-el) 137.9 ml LVAs ap2 20.6 cm\S\2 LVLs ap2 6.7 cm ESV(MOD-sp2) 54.5 ml ESV(sp2-el) 53.5 ml EF(MOD-sp2) 58.4 % EF(sp2-el) 61.2 % LVLd %diff 3.2 % EDV(MOD-bp) 122.5 ml LVLs %diff -1.52 % ESV(MOD-bp) 51.7 ml EF(MOD-bp) 57.8 % SV(MOD-sp4) 65.4 ml SI(MOD-sp4) 32.7 ml/m\S\2 SV(MOD-sp2) 76.5 ml SI(MOD-sp2) 38.3 ml/m\S\2 SV(MOD-bp) 70.8 ml SI(MOD-bp) 35.4 ml/m\S\2 SV(sp4-el) 71.3 ml SI(sp4-el) 35.6 ml/m\S\2 SV(sp2-el) 84.4 ml SI(sp2-el) 42.2 ml/m\S\2 Doppler Measurements and Calculations MV E max lakesha 92.7 cm/sec MV A max lakesha 66.9 cm/sec MV E/A 1.4 MV P1/2t max lakesha 94.9 cm/sec MV P1/2t 104.0 msec MVA(P1/2t) 2.1 cm\S\2 MV dec slope 267.3 cm/sec\S\2 MV dec time 0.26 sec Ao V2 max 138.8 cm/sec Ao max PG 7.7 mmHg Ao max PG (full) 1.7 mmHg MELL(V,A) 2.9 cm\S\2 MELL(V,D) 2.9 cm\S\2 AI max lakesha 455.3 cm/sec AI max PG 83.0 mmHg AI dec slope 149.8 cm/sec\S\2 AI P1/2t 890.1 msec LV V1 max PG 6.0 mmHg LV V1 max 122.7 cm/sec MR max lakesha 576.3 cm/sec MR max PG 132.9 mmHg PA V2 max 73.3 cm/sec PA max PG 2.2 mmHg TR max lakesha 256.8 cm/sec
[2018-01-01] MEDS: NITROGLYCERIN 2% OINTMENT 30GM TUBE EXT SCH ×2 (09:53→13:00)
--- NOTE | 2018-01-01 10:53 | CARDIOLOGY CONSULTATION ---
DATE OF CONSULTATION: 01/01/2018 REQUESTING: Dr. Jorge Church. LOADING DOCK HELPER: Luis Grier D.O., [facility] Cardiology. REASON FOR CONSULTATION: Chest discomfort, non-ST elevation myocardial infarction. Dear Jorge, Thank you for requesting cardiology consultation on Lane with regards to his chest discomfort and scapular discomfort along with minimally elevated troponin. He notes yesterday he was digging a hole, he noted some shortness of breath and was more fatigued doing activity that normally would not bother him. He came inside, his noted that he did not look very good and about in 45 minutes to an hour later he complained of central chest tightness with radiation into his scapula. It then resolved after a couple of minutes. He went to bed, he had 2 episodes that woke him overnight from his sleep that were very similar to the daytime episodes on Monday. To come to the hospital, his drove him, he had to climb a flight of stairs, he was more dyspneic than usual and he notes in retrospect over the last week or so he has had more epigastric discomfort and heartburn symptoms and belching which he has never really had in the past. He denies any lightheadedness, dizziness, presyncope, syncope. He denies any lower extremity edema. He denied any diaphoresis or with the episodes. He denies any bleeding, bruising, dark stools, black stools, fevers, chills, sweats, cough, productive sputum. His appetite is stable. His weight is stable. The rest of review of systems otherwise negative. He has no plans for upcoming surgery, tooth extraction or colonoscopy. PAST MEDICAL HISTORY: 1. History of pericarditis after a dental procedure. 2. Episode of fevers and chills, August 2016 with negative blood cultures concerning for systemic infection, post tooth cleaning. 3. Echocardiogram this admission with normal biventricular size and function, mild aortic insufficiency and mild mitral regurgitation. FAMILY HISTORY: Premature heart disease. FAMILY HISTORY: Dad had a heart attack in his late 50s and is still living. His paternal grandfather also had a heart attack in his early 60s. SOCIAL HISTORY: He denies any tobacco. He does drink alcohol. 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 He is . ALLERGIES: No known drug allergies. OUTPATIENT MEDICATIONS: Amoxicillin p.r.n. for dental procedures. REVIEW OF SYSTEMS: In the Emergency Room, he had chest discomfort. He was given sublingual nitroglycerin with improvement in his dynamic T-wave inversions. He has T-wave inversions in I, aVL, V5 and V6, which were worse upon admission at 5:45 in the morning and then improved with nitroglycerin. PHYSICAL EXAMINATION: GENERAL: He is awake, alert, oriented x3. He is in no acute distress. He is well-appearing male, looks his stated age. VITAL SIGNS: His heart rate is 52, respirations 16, blood pressure 155/87. NECK: 2+ carotid upstrokes, no evidence of carotid bruits. Jugular venous pressure appeared normal. HEENT: Sclerae is anicteric. His hearing is normal. LUNGS: Clear to auscultation bilaterally. No rales, rhonchi or wheezing. HEART: Regular rate and rhythm. No appreciable murmurs, rubs or gallops. ABDOMEN: Soft, nontender, nondistended. Positive bowel sounds. EXTREMITIES: No clubbing, cyanosis or edema. His affect 2+ dorsalis pedal pulses. PSYCHIATRIC: His affect appeared appropriate. NEUROLOGIC: Grossly nonfocal. LABORATORY STUDIES: Hemoglobin 14.2, platelet count 238. His complete metabolic profile was normal. Troponin 0.08. Coags are normal. IMAGING DATA: EKG sinus rhythm, T-wave inversions I, aVL, V5 and V6, concerning for lateral ischemia and then Q changed to sinus rhythm to sinus bradycardia. Chest x-ray - no active disease. Echocardiogram - as discussed above. IMPRESSION: 1. Non-ST elevation myocardial infarction with anginal symptoms since yesterday. 2. Hypertension, here in the hospital, but no outpatient history of hypertension. 3. History of pericarditis after a dental cleaning. 4. History of fevers and chills and sweats with negative blood cultures in 2016 after a dental cleaning. 5. Preserved left ventricular systolic function without regional wall motion abnormalities. 6. Mild aortic insufficiency and mild mitral insufficiency. As I discussed with Lane and his family, his symptoms sound very good for angina. I discussed with them as Dr. Church had discussed with him that we should proceed with cardiac catheterization to define his coronary anatomy. I discussed the risks and benefits of cardiac catheterization, risks including but not limited to bleeding or infection of the puncture site, damage to his radial or femoral artery, risk of contrast induced nephropathy and allergic reaction to contrast were discussed. He has had contrast in the past with no issues. We also discussed a 1 in 1000 risk with intervention of a heart attack, stroke or dying with the procedure. They wish to proceed. He has been started on aspirin. There is no room for beta blockers given his relative bradycardia. He should be started on high intensity statin therapy assuming he has coronary disease. In addition, if his blood pressure remains elevated, LARRY inhibitor therapy should be added to his medical regimen. The field laborer was notified of to add him on today. He is currently pain free and will continue with nitro paste through the catheterization. I will continue to follow with you. Thank you for allowing us to participate in his care.
[2018-01-01] MEDS ORDERED: MIDAZOLAM HCL 1 MG/ML 2ML VIAL ONE (11:51)
[2018-01-01] MEDS ORDERED: HEPARIN SOD (PORCINE) 1000 UNIT/ML 10 ML VIAL ONE (11:51)
[2018-01-01] MEDS ORDERED: NITROGLYCERIN/D5W 100MCG/ML 20ML SYR ONE (11:51)
[2018-01-01] MEDS ORDERED: FENTANYL CITRATE INJ 50 MCG/1 ML 2 ML VIAL ONE (11:51)
[2018-01-01] MEDS ORDERED: NiCARDipine HCL INJ 2.5 MG/ML 10 ML AMP ONE (11:51)
[2018-01-01] MEDS ORDERED: D5W AND 1/2NSS 1,000 ML IV SCH (12:52)
[2018-01-01] MEDS ORDERED: HEPARIN SOD 5000 UNIT/0.5 ML CARP SQ SCH (14:00)
--- NOTE | 2018-01-01 15:01 | CARDIAC CATH REPORT ---
INDICATION: Chest pain suspicious of angina with positive troponin in a 57-year-old male with a family history of premature coronary artery disease. The patient is not being treated for hypertension, hypercholesterolemia, and diabetes mellitus. PROCEDURES PERFORMED: Left heart catheterization, coronary cineangiography, left ventriculography, radiological interpretation and supervision, iFR. METHOD: Upon arrival in the production laborer, the patient was prepped and draped in usual sterile fashion. After local infiltration of 2% lidocaine, a 6-Faroese sheath was placed in the right radial artery. Intra-arterial nitroglycerin was administered, sheath was aspirated and flushed. A 5-Faroese PIG catheter was advanced over wire under fluoroscopic guidance to the central circulation where it was aspirated and flushed and after confirmation of adequate waveform, it was advanced into the left main. Cineangiograms of the left coronary artery obtained and reviewed. The catheter was then used to engage the origin of the right coronary artery. Cineangiograms of the right coronary artery obtained and reviewed. The catheter was removed from body over the wire where sheath was aspirated and flushed. We did an iFR. A 6-Faroese EBU 3-/2 guiding catheter was advanced over wire under fluoroscopic guidance to the central circulation where it was aspirated and flushed. After confirmation of adequate waveforms, advanced into the left main. Cineangiograms of the left anterior descending artery change obtained and reviewed. Intravenous heparin was administered. A Verrata wire was advanced under fluoroscopic guidance across the area of stenosis of the apical LAD. iFR was measured on 3 occasions. Wire was removed and the artery, guide from the left main. The sheath was aspirated and flushed. A 6-Faroese pigtail was used to cross the aortic valve in retrograde fashion. Left ventricular end diastolic pressure was measured. Left ventriculography was performed using 36 mL of contrast dye over 3 seconds less than 450 PSI. Catheter removed from left ventricle to the aorta and continuous pressure monitoring for the body over the wire. The sheath was aspirated and flushed. A compression device was applied over the right radial artery. The patient returned to his room in good condition. COMPLICATIONS: None. FINDINGS: Left main is normal. Left circumflex marginal posterolateral branches on the PDA arising (distal circumflex were all free of significant disease). Left anterior descending artery is moderate in caliber. A 60% stenosis noted in the mid LAD immediately distal to a large first diagonal branch. iFR associated with this lesion was 93-94%. An apical subtotal occlusion of the LAD is noted. First diagonal branch is free of significant disease. Right coronary artery is small and nondominant with no significant stenosis present. Left ventricular end-diastolic pressure is mildly elevated at 20 mmHg. No significant aortic valve gradient demonstrated. Left ventriculography demonstrates normal left ventricular size and function, ejection fraction estimated at 55% with mild inferior hypokinesis demonstrated. IMPRESSION: Noncritical mid left anterior descending coronary artery stenosis, possibly "roughed up" within very apical subtotal occlusion of the left anterior descending coronary artery to suggest a possible thrombotic event. RECOMMENDATIONS: 1. Aspirin, consider Plavix in light of prior intracranial hemorrhage. 2. Cholesterol-lowering therapy with a moderate to high dose statins (P3 guidelines). 3. No intervention warranted at this time.
[2018-01-01] MEDS ORDERED: ASPI81TA28 PO (15:10)
[2018-01-01] MEDS ORDERED: LPT/40 PO (15:10)
--- NOTE | 2018-01-01 15:12 | Discharge Instructions ---
Discharge Instructions Date of Service Jan 01, 2018. Admission Reason for Admission: Elevated Troponin Discharge Discharge Diagnosis / Problem: coroanary artery disease Discharge Goals Goal(s): Diagnostic testing, Therapeutic intervention Activity Recommendations Activity Limitations: as noted below Lifting Limitations: gradually increase as tolerated . Instructions / Follow-Up Instructions / Follow-Up Home Care: * Take your medications exactly as directed. Don't skip doses. * Remember that recovery after a heart attack takes time. Plan to rest for at lease 4-8 weeks while you recover. Then return to normal activity when your doctor says it's okay. * Ask your doctor about joining a heart rehabilitation program. * Tell your doctor if you are feeling depressed. Feelings of sadness are common after a heart attack, but it is important that you speak to someone if you are feeling overwhelmed by these feelings. * If you are having chest pain, call 911 for an ambulance. Do NOT drive yourself to the hospital. * Ask your family members to learn CPR. * Learn to take your own blood pressure and pulse. Keep a record of your results. Ask your doctor when you should seek emergency medical attention. He or she will tell you which blood pressure reading is dangerous. Lifestyle Changes: * Maintain a healthy weight. Get help to lose any extra pounds. * Cut back on salt. * Limit canned, dried, packaged, and fast foods. * Don't add salt to your food. * Season foods with herbs instead of salt when you cook. * Break the smoking habit. Enroll in a stop-smoking program to improve your chances of success. * Limit fatty foods. * Ask your doctor about having your lipid levels checked regularly. * Build up your activity according to your doctor's recommendation. * Ask your doctor when it's okay to resume sexual activity. * Tell your doctor about any erectile dysfunction (ED) medication you are taking. Some ED medications are not safe if you take certain heart medications. * Try to manage stress. Follow Up: It is important for you to keep your follow up appointments with your medical provider. Current Hospital Diet Patient's current hospital diet: AHA Diet (Heart Healthy) Discharge Diet Recommended Diet: AHA Diet (Heart Healthy) Pending Studies Studies pending at discharge: no Medical Emergencies . Who to Call and When: Medical Emergencies: If at any time you feel your situation is an emergency, please call 911 immediately. Call 911 immediately or go to your nearest Emergency Room if you experience any of the following: Warning Signs and Symptoms of a Heart Attack * Chest pain that is not relieved by medication * Shortness of breath . Non-Emergent Contact Non-Emergency issues call your: Primary Care Provider, Zmt Operator Call Non-Emergent contact if: temperature is above 101, your pain is unusual for you . . "Provider Documentation" section prepared by Jorge Church. . AMI Core Measures Reason no ASA as I/P: Treatment provided - N/A Reason no ASA at D/C: Treatment provided - N/A Reason no statin as I/P: Treatment provided - N/A Reason no statin at D/C: Treatment provided - N/A
--- NOTE | 2018-01-01 15:41 | Discharge Summary ---
Discharge Summary Date of Service Jan 01, 2018. 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 Medication Reconciliation New Medications: Aspirin (Aspirin Ec) 81 Mg Tab 81 MG PO DAILY, #200 DOSE 3 Refills Atorvastatin (Lipitor) 40 Mg Tab 40 MG PO DAILY, #90 TAB 3 Refills Continued Medications: Amoxicillin (Amoxil) 500 Mg Cap 2000 MG PO UD, #21 CAP TAKE BEFORE DENTIST PROCEDURE Discharge Exam pt was seen in afternoon, had no complaints, no further chest pain and is awaiting final cuff release from right wrist, did explain findings with pt, spouse and daughter, all questions answered Hospital Course 57-year-old male with dynamic EKG changes positive troponin on serum testing, 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 this did not disturb flow and medical management was recommended CAD will have aspirin low dose given history of intra cranial bleed, and start atorvostatin for secondary risk prevention, will not use Beta orsi due to relative low resting heart rate Patient is a full code Of note patient has no neurological deficits from his previous posterior fossa hemorrhage Total Time Spent: Greater than 30 minutes This includes examination of the patient, discharge planning, medication reconciliation, and communication with other providers. Discharge Instructions Please refer to the electronic Patient Visit Report (Discharge Instructions) for additional information. Additional Copies To Madhav Jang D.O.; Luis Grier, DO
== END 2018-01-01 16:29 | disposition home or self-care (01) | DRG 287 ==
LOC: C.EDB 05:39 → C.2E 07:32 → ENRESERV 07:56
PROVIDERS: ADMIT Internal Medicine; ATTEND Internal Medicine
PROC: 4A023N7 Measurement of Cardiac Sampling and Pressure, Left Heart, Percutaneous Approach (ICD-10-PCS; principal; 2018-01-01 12:00)
PROC: B215YZZ Fluoroscopy of Left Heart using Other Contrast (ICD-10-PCS; principal; 2018-01-01 12:00)
DX: I25.10 Atherosclerotic heart disease of native coronary artery without angina pectoris (principal); Z86.73 Personal history of transient ischemic attack (TIA), and cerebral infarction without residual deficits; Z79.82 Long term (current) use of aspirin; Z80.9 Family history of malignant neoplasm, unspecified; Z83.3 Family history of diabetes mellitus; Z82.49 Family history of ischemic heart disease and other diseases of the circulatory system

== ENCOUNTER 2020-01-24 11:45 | Inpatient (IN) ==
[2020-01-24] MEDS ORDERED: SODIUM CHLORIDE 0.9% 1000ML 1,000 ML IV ONE (11:51)
[2020-01-24] MEDS ORDERED: ONDANSETRON INJ 2 MG/ML 2 ML VIAL IV STA (11:51)
[2020-01-24] MEDS ORDERED: OPTIRAY 320 125ml IV PRN (12:02)
[2020-01-24 12:08] LABS: Basophils # (auto) 0.08 K/uL (0-0.2); Basophils % (auto) 0.8 %; Eosinophils # (auto) 0.25 K/uL (0-0.5); Eosinophils % (auto) 2.5 %; Hematocrit (blood only) 46.7 % (42-52); Hemoglobin 16.4 g/dL (14.0-18.0); Immature Granulocytes # (auto) 0.05 K/uL (0.00-0.02); Immature Granulocytes % (auto) 0.5 %; Lymphocytes # (auto) 3.47 K/uL (1.2-3.4); Lymphocytes % (auto) 35.2 %; Mean Corpuscular Hgb Conc 35.1 g/dL (32-36); Mean Platelet Volume 9.7 fL (7.4-10.4); Monocytes # (auto) 0.69 K/uL (0.11-0.59); Neutrophils # (auto) 5.32 K/uL (1.4-6.5); Platelet Count 249 K/uL (130-400); RDW Coefficient of Variation 12.8 % (11.5-14.5); RDW Standard Deviation 42.6 fL (36.4-46.3); Red Blood Count 5.13 M/uL (4.7-6.1); White Blood Count 9.86 K/uL (4.8-10.8)
[2020-01-24] MEDS ORDERED: DiphenhydrAMINE HCL 50 MG/ML VIAL IV STA (12:09)
[2020-01-24] MEDS ORDERED: ACETAMINOPHEN 1,000 MG/100 ML VIAL IV STA (12:09)
[2020-01-24] MEDS ORDERED: MAGNESIUM SULFATE / D5W 1 GM/100 ML BAG IV ONE (12:09)
[2020-01-24] MEDS ORDERED: PROCHLORPERAZINE 2 ML IV ONE (12:09)
[2020-01-24 12:19] LABS: Partial Thromboplastin Ratio 0.9; Partial Thromboplastin Time 26.5 Seconds (21.0-31.0); Prothrombin Time 10.8 Seconds (9.0-12.0)
--- NOTE | 2020-01-24 12:19 | Emergency Department Note ---
History of Present Illness General Chief complaint: Neuro Symptoms/Deficit Stated complaint: HEADACHE,NUMBNESS IN ARMS,HX BRAIN BLEED Time Seen by Provider: 01/24/20 11:51 Source: patient, family, RN notes reviewed and old records reviewed Mode of arrival: ambulatory Limitations: no limitations History of Present Illness Provider complaint: Severe headache Onset (ago): hour(s) 5 Location: head Radiation: non-radiation Severity: severe and similar to prior episodes Pain Consistency: + constant Maximum Pain Intensity: 7 Current Pain Intensity: 7 Quality: + constant Relieved By: + none Exacerbated By: + none Associated symptoms: + nausea/vomiting Treatments prior to arrival: none This is a 59-year-old male who has a history of a brain bleed who presents emergency department with severe headache. Patient reports he woke up this morning with a headache in the back of his head. He reports it was consistent with his previous brain bleed. He went about his day and began cleaning a bathroom approximately 1 hour ago when the headache became much worse. Upon arrival to the emergency department the patient is actively vomiting. He denies any chest pain or abdominal pain. Home Medications Home Medications Medication Instructions Recorded Confirmed Type aspirin [Aspir-81] 0 mg PO HS 03/19/19 01/24/20 History coenzyme Q10 [CoQ-10] 100 mg PO HS 05/29/19 01/24/20 History acetaminophen [Tylenol] 0 mg PO QID PRN 01/24/20 01/24/20 History pravastatin 20 mg PO HS 01/24/20 01/24/20 History Allergies Allergy/AdvReac Type Severity Reaction Status Date / Time aspirin Allergy Intermediate Rash - see Verified 01/24/20 12:23 comments rosuvastatin Allergy Intermediate Rash - see Verified 01/24/20 12:23 comments Past Med/Surg History Social History Preferred Language: Com[place]an Communication Ability: Effective 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 Beliefs That Will Affect Care: None Current Living Situation: Spouse Feels Safe at Home: Yes Safety Concerns: Feels Safe At This Time Smoking Status: Never smoker Second Hand Exposure: No ; Hx Alcohol Use: Yes Alcohol type: beer Hx Substance Use: No Physical Exam Vital Signs Vital Signs - 24 hr 01/24/20 11:47 01/24/20 11:56 01/24/20 12:17 Temperature 36.5 C Temperature Source Oral Pulse Rate 64 63 60 Pulse Rate from SpO2 Sensor 62 61 Respiratory Rate 20 Respiratory Effort / Characteristics Non-Labored Spontaneous Respiratory Depth Normal Blood Pressure 212/111 H 243/115 H 192/114 H Blood Pressure Mean 144 140 155 Pulse Oximetry 100 99 97 Oxygen Delivery Method Room Air Sepsis Recent Fever Within 48 Hours No Sepsis New/Unexplained Change in Mental Status No Sepsis Action Taken by Nursing No Action Required 01/24/20 12:20 01/24/20 12:25 01/24/20 12:30 Temperature Temperature Source Pulse Rate 76 80 78 Pulse Rate from SpO2 Sensor 75 80 78 Respiratory Rate Respiratory Effort / Characteristics Respiratory Depth Blood Pressure 183/97 H 181/89 H 190/97 H Blood Pressure Mean 145 126 143 Pulse Oximetry 96 93 94 Oxygen Delivery Method Sepsis Recent Fever Within 48 Hours Sepsis New/Unexplained Change in Mental Status Sepsis Action Taken by Nursing 01/24/20 12:35 01/24/20 12:40 01/24/20 12:46 Temperature Temperature Source Pulse Rate 76 76 77 Pulse Rate from SpO2 Sensor 77 76 77 Respiratory Rate Respiratory Effort / Characteristics Respiratory Depth Blood Pressure 179/94 H 175/85 H 171/79 H Blood Pressure Mean 125 105 114 Pulse Oximetry 91 91 91 Oxygen Delivery Method Room Air Sepsis Recent Fever Within 48 Hours Sepsis New/Unexplained Change in Mental Status Sepsis Action Taken by Nursing 01/24/20 13:22 01/24/20 13:25 01/24/20 13:31 Temperature Temperature Source Pulse Rate 67 66 65 Pulse Rate from SpO2 Sensor 67 66 65 Respiratory Rate Respiratory Effort / Characteristics Respiratory Depth Blood Pressure 177/90 H 162/83 H 156/90 H Blood Pressure Mean 132 123 122 Pulse Oximetry 95 94 96 Oxygen Delivery Method Room Air Room Air Room Air Sepsis Recent Fever Within 48 Hours Sepsis New/Unexplained Change in Mental Status Sepsis Action Taken by Nursing 01/24/20 13:35 01/24/20 13:40 01/24/20 13:47 Temperature Temperature Source Pulse Rate 66 68 68 Pulse Rate from SpO2 Sensor 66 68 68 Respiratory Rate Respiratory Effort / Characteristics Respiratory Depth Blood Pressure 158/85 H 169/84 H 151/85 H Blood Pressure Mean 102 116 106 Pulse Oximetry 95 94 95 Oxygen Delivery Method Room Air Room Air Room Air Sepsis Recent Fever Within 48 Hours Sepsis New/Unexplained Change in Mental Status Sepsis Action Taken by Nursing 01/24/20 14:01 01/24/20 14:15 01/24/20 14:30 Temperature Temperature Source Pulse Rate 68 63 64 Pulse Rate from SpO2 Sensor 67 63 65 Respiratory Rate Respiratory Effort / Characteristics Respiratory Depth Blood Pressure 151/95 H 141/65 H 149/82 H Blood Pressure Mean 112 84 103 Pulse Oximetry 92 94 95 Oxygen Delivery Method Room Air Room Air Room Air Sepsis Recent Fever Within 48 Hours Sepsis New/Unexplained Change in Mental Status Sepsis Action Taken by Nursing 01/24/20 14:45 Temperature Temperature Source Pulse Rate 64 Pulse Rate from SpO2 Sensor 64 Respiratory Rate Respiratory Effort / Characteristics Respiratory Depth Blood Pressure 139/80 Blood Pressure Mean 110 Pulse Oximetry 96 Oxygen Delivery Method Room Air Sepsis Recent Fever Within 48 Hours Sepsis New/Unexplained Change in Mental Status Sepsis Action Taken by Nursing Course Administered Medications Aspirin (Ecotrin Ectab) 81 mg PO [facility] Stop: 02/23/20 20:59 Last Admin: 01/24/20 20:00 Dose: Not Given Documented by: [id number] Clopidogrel Bisulfate (Plavix) 75 mg PO [facility] Stop: 02/24/20 08:59 Last Admin: 01/25/20 08:15 Dose: 75 mg Documented by: [id number] Nicardipine HCl 25 mg/ Sodium (Chloride) 250 mls @ 0 mls/hr IV .Q0M [facility]; Protocol Stop: 02/23/20 12:14 Last Titration: 01/24/20 15:31 Dose: 0 mg/hr, 0 mls/hr Documented by: [id number] Titration: 01/24/20 13:39 Dose: 0 mg/hr, 0 mls/hr Documented by: [id number] Titration: 01/24/20 13:24 Dose: 3 mg/hr, 30 mls/hr Documented by: [id number] Titration: 01/24/20 12:44 Dose: 0 mg/hr, 0 mls/hr Documented by: [id number] Admin: 01/24/20 12:13 Dose: 5 mg/hr, 50 mls/hr Documented by: [id number] Cosigned by: [id number] Ioversol (Optiray 320 125ml) 120 ml IV ONCE PRN PRN Reason: Interaction Checking Stop: 01/28/20 12:01 Last Admin: 01/24/20 12:02 Dose: 120 ml Documented by: [id number] Pravastatin Sodium (Pravachol) 20 mg PO HS [facility] Stop: 02/23/20 20:59 Last Admin: 01/24/20 19:58 Dose: 20 mg Documented by: [id number] Discontinued Medications Clopidogrel Bisulfate (Plavix) 600 mg PO 1800 ONE Stop: 01/24/20 18:01 Last Admin: 01/24/20 19:57 Dose: 600 mg Documented by: [id number] Diphenhydramine HCl (Benadryl) 50 mg IV NOW STA Stop: 01/24/20 12:10 Last Admin: 01/24/20 12:18 Dose: 50 mg Documented by: [id number] Sodium Chloride (Nss 1000ml) 1,000 mls @ 999 mls/hr IV .Q1H1M ONE Stop: 01/24/20 12:51 Last Infusion: 01/24/20 13:25 Dose: 0 mls/hr Documented by: [id number] Admin: 01/24/20 12:15 Dose: 999 mls/hr Documented by: [id number] Acetaminophen (Ofirmev) 1,000 mg in 100 mls @ 400 mls/hr IV NOW STA Stop: 01/24/20 12:23 Last Infusion: 01/24/20 12:41 Dose: 0 mls/hr Documented by: [id number] Admin: 01/24/20 12:18 Dose: 400 mls/hr Documented by: [id number] Prochlorperazine (Compazine) 2 mls @ 1 mls/min IV ONE ONE Stop: 01/24/20 12:10 Last Admin: 01/24/20 12:18 Dose: 1 mls/min Documented by: [id number] Magnesium Sulfate/Dextrose (Magnesium Sulfate / D5w) 1 gm in 100 mls @ 100 mls/hr IV ONE ONE Stop: 01/24/20 13:08 Last Infusion: 01/24/20 14:21 Dose: 0 mls/hr Documented by: [id number] Infusion: 01/24/20 13:25 Dose: 100 mls/hr Documented by: [id number] Infusion: 01/24/20 12:56 Dose: 0 mls/hr Documented by: [id number] Admin: 01/24/20 12:23 Dose: 100 mls/hr Documented by: [id number] Ondansetron HCl (Zofran) 4 mg IV NOW STA Stop: 01/24/20 11:52 Last Admin: 01/24/20 12:13 Dose: 4 mg Documented by: [id number] Critical Care Time I have personally spent greater than 90 minutes of critical care time in the direct management of this patient. This includes bedside care, interpretation o f diagnostic studies, and testing, discussion with consultants, patient, and family members, and other required patient management activities. This 90 minutes is in excess of all separately billable procedures. Medical Decision Making Differential Diagnosis Migraine headache, meningitis, sinusitis, CO exposure, ICH, SAH, infection, tumor, headache, sinus thrombosis, arterial dissection, as well as other pathologies. Medical Records Attestation: I reviewed the patient's medical records. Home Medications Current Medication List: was personally reviewed by me Laboratory Data Attestation: I reviewed the patient's lab results. Result diagrams: 01/25/20 01:51 01/25/20 01:51 Lab Results 01/24/20 01/24/20 01/24/20 Range/Units 11:55 11:55 11:55 WBC 9.86 (4.8-10.8) K/uL RBC 5.13 (4.7-6.1) M/uL Hgb 16.4 (14.0-18.0) g/dL POC Hgb (14.0-18.0) g/dl Hct 46.7 (42-52) % POC Hct (42-52) % MCV 91.0 (80-100) fL MCH 32.0 (25-34) pg MCHC 35.1 (32-36) g/dL RDW Std Deviation 42.6 (36.4-46.3) fL RDW Coeff of Kwasi 12.8 (11.5-14.5) % Plt Count 249 (130-400) K/uL MPV 9.7 (7.4-10.4) fL Immature Gran % (Auto) 0.5 % Neut % (Auto) 54.0 % Lymph % (Auto) 35.2 % [place] % (Auto) 7.0 % Eos % (Auto) 2.5 % Baso % (Auto) 0.8 % Immature Gran # (Auto) 0.05 H (0.00-0.02) K/uL Neut # (Auto) 5.32 (1.4-6.5) K/uL Lymph # (Auto) 3.47 H (1.2-3.4) K/uL [place] # (Auto) 0.69 H (0.11-0.59) K/uL Eos # (Auto) 0.25 (0-0.5) K/uL Baso # (Auto) 0.08 (0-0.2) K/uL PT 10.8 (9.0-12.0) Seconds INR 1.0 (0.9-1.1) APTT 26.5 (21.0-31.0) Seconds PTT Ratio 0.9 POC Sodium (135-144) mmol/L Sodium 137 (136-145) mmol/L POC Potassium (3.3-5.0) mmol/L Potassium 3.7 (3.5-5.1) mmol/L POC Chloride (101-112) mmol/L Chloride 105 (98-107) mmol/L Carbon Dioxide 24 (21-32) mmol/L POC Total CO2 (24-31) mEq/l Anion Gap 9.0 (3-11) POC Anion Gap (16-25) mmol/L POC BUN (7-18) mg/dl BUN 18 (7-18) mg/dl Creatinine 1.04 (0.6-1.4) mg/dl POC Creatinine (0.6-1.3) mg/dl Est Cr Clr Drug Dosing 80.9 ml/min Est GFR ( Amer) 90.7 Est GFR (Non-Af Amer) 78.2 BUN/Creatinine Ratio 17.7 (10-20) Glucose 114 H (70-99) mg/dl POC Glucose (other) (70-99) mg/dl Calcium 10.0 (8.5-10.1) mg/dl POC Ioniz Calcium Aurelio (1.12-1.32) mmol/l Magnesium 2.1 (1.8-2.4) mg/dl Total Bilirubin 0.7 (0.2-1) mg/dl AST 21 (15-37) U/L ALT 33 (12-78) U/L Alkaline Phosphatase 70 (45-117) U/L CK-MB (CK-2) 2.3 (0.5-3.6) ng/ml Troponin I 0.020 (0-0.045) ng/ml Total Protein 8.7 H (6.4-8.2) gm/dl Albumin 4.5 (3.4-5.0) gm/dl Globulin 4.2 H (2.5-4.0) gm/dl Albumin/Globulin Ratio 1.1 (0.9-2) 01/24/20 01/24/20 Range/Units 12:20 13:34 WBC (4.8-10.8) K/uL RBC (4.7-6.1) M/uL Hgb (14.0-18.0) g/dL POC Hgb 16.7 (14.0-18.0) g/dl Hct (42-52) % POC Hct 49 (42-52) % MCV (80-100) fL MCH (25-34) pg MCHC (32-36) g/dL RDW Std Deviation (36.4-46.3) fL RDW Coeff of Kwasi (11.5-14.5) % Plt Count (130-400) K/uL MPV (7.4-10.4) fL Immature Gran % (Auto) % Neut % (Auto) % Lymph % (Auto) % [place] % (Auto) % Eos % (Auto) % Baso % (Auto) % Immature Gran # (Auto) (0.00-0.02) K/uL Neut # (Auto) (1.4-6.5) K/uL Lymph # (Auto) (1.2-3.4) K/uL [place] # (Auto) (0.11-0.59) K/uL Eos # (Auto) (0-0.5) K/uL Baso # (Auto) (0-0.2) K/uL PT (9.0-12.0) Seconds INR (0.9-1.1) APTT (21.0-31.0) Seconds PTT Ratio POC Sodium 140 (135-144) mmol/L Sodium (136-145) mmol/L POC Potassium 3.7 (3.3-5.0) mmol/L Potassium (3.5-5.1) mmol/L POC Chloride 103 (101-112) mmol/L Chloride (98-107) mmol/L Carbon Dioxide (21-32) mmol/L POC Total CO2 24 (24-31) mEq/l Anion Gap (3-11) POC Anion Gap 18.0 (16-25) mmol/L POC BUN 19 H (7-18) mg/dl BUN (7-18) mg/dl Creatinine (0.6-1.4) mg/dl POC Creatinine 0.9 (0.6-1.3) mg/dl Est Cr Clr Drug Dosing ml/min Est GFR ( Amer) Est GFR (Non-Af Amer) BUN/Creatinine Ratio (10-20) Glucose (70-99) mg/dl POC Glucose (other) 114 H (70-99) mg/dl Calcium (8.5-10.1) mg/dl POC Ioniz Calcium Aurelio 1.17 (1.12-1.32) mmol/l Magnesium (1.8-2.4) mg/dl Total Bilirubin (0.2-1) mg/dl AST (15-37) U/L ALT (12-78) U/L Alkaline Phosphatase (45-117) U/L CK-MB (CK-2) (0.5-3.6) ng/ml Troponin I 0.299 H* (0-0.045) ng/ml Total Protein (6.4-8.2) gm/dl Albumin (3.4-5.0) gm/dl Globulin (2.5-4.0) gm/dl Albumin/Globulin Ratio (0.9-2) Imaging Data Radiologist's Impression: [place], [place] [phone] CT Scan Report Patient: AVELINA LIMON AAdmit Date: 01/24/20 MR#: [id number]: 109 ED Acct ID:[id number]: Date: 1960ty Zip: [place] [address] Age: 59Location: ED Sex: M Room/Bed: Att Phy:Diagnosis: HEADACHE,NUMBNESS IN ARMS,HX BRAIN BLEED Simin Phy: Madhav Jang D.O.Service Date: 01/24/20 Fam Phy:Interpreting Phy: Devante Baker MD Admit Phy: Ordering Phy: Juan José Medina MD cc: ~ HEAD CT NONCONTRAST CT DOSE: HISTORY: Severe headache. Vomiting. Bilateral arm numbness. Stroke evaluation TECHNIQUE: Multiaxial CT images of the head were performed without the use of intravenous contrast. Automated exposure control was utilized for this study. A dose lowering technique was utilized adhering to the principles of ALARA. Comparison: Head CT 04/07/2013. Findings: The paranasal sinuses and mastoid air cells are clear. The calvarium and skull base are intact. The ventricles and sulci are within normal limits. There is no mass, hematoma, midline shift, or acute infarct. Impression: No acute intracranial abnormality. ACT 112: Negative or not required by law. Electronically signed by: Devante Baker M.D. 01/24/2020 12:22 PM Dictated: 01/24/20 1216 Transcribed: 01/24/20 1218 [place], [place] [phone] CT Scan Report Patient: AVELINA LIMON AAdmit Date: 01/24/20 MR#: [id number]: 109 ED [place] Acct ID:[id number]: Date: 1960City Zip: [place] [address] Age: 59Location: ED Sex: M Room/Bed: Att Phy:Diagnosis: HEADACHE,NUMBNESS IN ARMS,HX BRAIN BLEED Simin Phy: Madhav Jang D.O.Service Date: 01/24/20 Fam Phy:Interpreting Phy: Devante Baker MD Admit Phy: Ordering Phy: Juan José Medina MD cc: ~ HEAD & NECK CTA HISTORY: Headache. Bilateral upper extremity weakness. Stroke evaluation TECHNIQUE: Multiaxial CT images of the head were performed following the intravenous administration of contrast to evaluate the major cerebral vessels. Multiaxial CT images of the neck were also performed following the intravenous administration of contrast to evaluate the major cervical vessels. Maximum intensity projection images were also obtained. A dose lowering technique was utilized adhering to the principles of ALARA. COMPARISON: Brain MRI 01/08/2010. FINDINGS: There is no mass, hematoma, midline shift, or acute infarct. Visualized intracra nial internal carotid arteries, distal vertebral arteries, and basilar artery are widely patent. There is no significant stenosis, occlusion, or aneurysm seen within the bilateral ACAs, MCAs, or assistive technology specialist. Hypoplastic distal left vertebral artery. Persistent left posterior circulation which is considered to be a normal variant. The aortic arch and proximal great vessels are widely patent. There is no significant stenosis, occlusion, or dissection identified within the bilateral common carotid, internal carotid, or vertebral arteries. Hypoplastic left vertebral artery. IMPRESSION: 1. No significant stenosis, occlusion, or aneurysm within the [place]. 2. No significant stenosis, occlusion, or dissection identified within the carotid or vertebral arteries. ACT 112: Negative or not required by law. Electronically signed by: Devante Baker M.D. 01/24/2020 12:32 PM Dictated: 01/24/20 1223 [place], [place] [phone] CT Scan Report Patient: AVELINA LIMON AAdmit Date: 01/24/20 MR#: [id number]: 109 ED [place] Acct ID:[id number]: Date: 1960City Zip: [place] [address] Age: 59Location: ED Sex: M Room/Bed: Att Phy:Diagnosis: HEADACHE,NUMBNESS IN ARMS,HX BRAIN BLEED Simin Phy: Madhav Jang D.O.Service Date: 01/24/20 [facility] Phy:Interpreting Phy: Devante Baker MD Admit Phy: Ordering Phy: Juan José Medina MD cc: ~ HEAD & NECK CTA HISTORY: Headache. Bilateral upper extremity weakness. Stroke evaluation TECHNIQUE: Multiaxial CT images of the head were performed following the intravenous administration of contrast to evaluate the major cerebral vessels. Multiaxial CT images of the neck were also performed following the intravenous administration of contrast to evaluate the major cervical vessels. Maximum intensity projection images were also obtained. A dose lowering technique was utilized adhering to the principles of ALARA. COMPARISON: Brain MRI 01/08/2010. FINDINGS: There is no mass, hematoma, midline shift, or acute infarct. Visualized intracranial internal carotid arteries, distal vertebral arteries, and basilar artery are widely patent. There is no significant stenosis, occlusion, or aneurysm seen within the bilateral ACAs, MCAs, or assistive technology specialist. Hypoplastic distal left vertebral artery. Persistent left posterior circulation which is conside red to be a normal variant. The aortic arch and proximal great vessels are widely patent. There is no significant stenosis, occlusion, or dissection identified within the bilateral common carotid, internal carotid, or vertebral arteries. Hypoplastic left vertebral artery. IMPRESSION: 1. No significant stenosis, occlusion, or aneurysm within the [place] of [place]. 2. No significant stenosis, occlusion, or dissection identified within the carotid or vertebral arteries. ACT 112: Negative or not required by law. Electronically signed by: Devante Baker M.D. 01/24/2020 12:32 PM Dictated: 01/24/20 1223 Transcribed: 01/24/20 1223 Transcribed: 01/24/20 1223 Patient: AVELINA LIMON Admit Date: 01/24/20 MR#: [id number] Address1: [address] [place] [address] Acct ID:[id number] Address2: Date: 1960 [facility] Zip: [place] [address] Age: 59 Location: ED Sex: M Room/Bed: Att Phy: Diagnosis: HEADACHE,NUMBNESS IN ARMS,HX BRAIN BLEED Simin Phy: Madhav Jang D.O. Service Date: 01/24/20 Fam Phy: Interpreting Phy: Jaron Magana MD Admit Phy: Ordering Phy: Juan José Medina MD cc: ~ MRI OF THE BRAIN WITHOUT IV CONTRAST CLINICAL HISTORY: Headache. COMPARISON STUDY: CT of the brain dated 01/24/2020. TECHNIQUE: MRI of the brain was performed utilizing various T1 and T2-weighted sequences in the axial, sagittal, and coronal planes. IV contrast was not ad ministered for this examination. FINDINGS: Brain parenchyma: The brain parenchyma is normal in appearance. There is no hemorrhage or mass effect. There is no restricted diffusion to suggest acute is chemia. Mejia-white matter differentiation is preserved. No extra-axial fluid collection is seen. The cerebellar tonsils are normal in configuration. Ventricles, sulci, and cisterns: Normal in configuration. Pituitary and sella: Partially empty sella is incidentally noted. Intracranial vasculature: Normal flow voids are maintained at the skull base. Orbits: The bony orbits are grossly intact. Orbital contents are normal in appearance. Sinuses and mastoids: Mild mucosal thickening is noted in the maxillary antra, the ethmoid sinuses, and the frontal sinuses. The mastoid air cells are well p neumatized. Calvarium: Unremarkable. Cervical cord: Partially visualized cervical spinal cord is normal in morphology and signal intensity. IMPRESSION: No acute intracranial abnormality. ACT 112: Negative or not required by law. Electronically signed by: Jaron Magana M.D. 01/24/2020 1:26 PM Dictated: 01/24/20 1323 Transcribed: 01/24/20 1323 [place], [place] [phone] XRay Report Patient: AVELINA LIMON AAdmit Date: 01/24/20 MR#: [id number]: 109 ED [place] Acct ID:[id number]: Date: 1960City Zip: [place] [address] Age: 59Location: ED Sex: M Room/Bed: Att Phy:Diagnosis: HEADACHE,NUMBNESS IN ARMS,HX BRAIN BLEED Simin Phy: Madhav JangDChandaO.Service Date: 01/24/20 Fam Phy:Interpreting Phy: Jaron Magana MD Admit Phy: Ordering Phy: Juan José Medina MD cc: ~ SINGLE VIEW CHEST CLINICAL HISTORY: Headache. FINDINGS: An AP, portable, upright chest radiograph is compared to study dated 01/01/2018. The examination is degraded by portable technique and patient rotation. The heart is enlarged. The pulmonary vasculature is noncongested. Airspace opacities are present at both lung bases. No large pleural effusion or pneumothorax is seen. The bony thorax is grossly intact. IMPRESSION: 1. Cardiomegaly without radiographic evidence of congestive failure. 2. Airspace opacities are present at both lung bases. This could present atelectasis versus an infectious/inflammatory pneumonitis. Clinical correlation will be required. ACT 112: Negative or not required by law. Electronically signed by: Jaron Magana M.D. 01/24/2020 12:53 PM Dictated: 01/24/20 1249 Transcribed: 01/24/20 1249 ECG Data Attestation: I personally reviewed and interpreted this ECG as follows: Rate (beats per minute): 66 Rhythm: + normal sinus ECG Intervals/blocks: + Normal QT-c (450) ECG [place]: + Normal ECG ST segments: no ST depression and no ST elevation ECG Findings: + Other (t wave inversion lateral leads) Comparison ECG Date: from Change: no significant change Additional Comments: Repeat EKG shows a normal sinus rhythm along with left axis deviation, T wave inversions have inverted in the lateral leads. QTC is 459. There is no ST elevation or depression rate is 65 Blood Pressure Blood Pressure Findings: Elevated blood pressure MDM Narrative This is a 59-year-old male who presents emergency department with severe headache. The patient reports he has a history of a brain bleed because of this the patient was sent immediately for a CT and CTA of the head and neck. This does not show any acute process. Because the patient's blood pressure was e xtremely high he was started on a nicardipine drip. He is given acetaminophen as well as Compazine and Benadryl and magnesium. Repeat examination revealed improvement the patient's symptoms. Due to the patient's complex medical history he was sent for an MRI of the brain which does not show any evidence of acute process. Because the patient remained on the nicardipine drip and because of the T wave inversion changes on the EKG I do feel he should be admitted. Patient and family are in agreement with the treatment plan. Impression & Plan Hypertensive urgency, Acute electrocardiogram changes Discharge Plan Visit Data *Final* Discharge Date/Time: 01/24/20 15:29 Chief Complaint: Neuro Symptoms/Deficit Stated Complaint: HEADACHE,NUMBNESS IN ARMS,HX BRAIN BLEED ED Provider: Juan José Medina Discharge Problem: Hypertensive urgency, Acute electrocardiogram changes Patient Disposition: Admitted As Inpatient Discharge Instructions Interventions: ED Discharge Assessment Last Done: 01/24/20 15:29
--- NOTE | 2020-01-24 12:24 | CT Scan Report ---
HEAD CT NONCONTRAST CT DOSE: HISTORY: Severe headache. Vomiting. Bilateral arm numbness. Stroke evaluation TECHNIQUE: Multiaxial CT images of the head were performed without the use of intravenous contrast. A utomated exposure control was utilized for this study. A dose lowering technique was utilized adheri ng to the principles of ALARA. Comparison: Head CT 04/07/2013. Findings: The paranasal sinuses and mastoid air cells are clear. The calvarium and skull base are int act. The ventricles and sulci are within normal limits. There is no mass, hematoma, midline shift, or acute infarct. Impression: No acute intracranial abnormality. ACT 112: Negative or not required by law. Electronically signed by: Devante Baker M.D. 01/24/2020 12:22 PM
[2020-01-24 12:27] LABS: Alanine Aminotransferase 33 U/L (12-78); Albumin Level 4.5 gm/dl (3.4-5.0); Aspartate Aminotransferase 21 U/L (15-37); BUN Creatinine Ratio 17.7 (10-20); Blood Urea Nitrogen 18 mg/dl (7-18); Carbon Dioxide 24 mmol/L (21-32); Chloride 105 mmol/L (98-107); Creatinine Clr Calc Pharmacy 80.9 ml/min; Est GFR (African American) 90.7; Est GFR (Non-African American) 78.2; Glucose 114 mg/dl (70-99); Magnesium 2.1 mg/dl (1.8-2.4); Potassium 3.7 mmol/L (3.5-5.1); Sodium 137 mmol/L (136-145)
[2020-01-24 12:31] LABS: Albumin Globulin Ratio 1.1 (0.9-2); Alkaline Phosphatase 70 U/L (45-117); Bilirubin,Total 0.7 mg/dl (0.2-1); Creatine Kinase MB 2.3 ng/ml (0.5-3.6); Globulin 4.2 gm/dl (2.5-4.0); Total Protein 8.7 gm/dl (6.4-8.2)
[2020-01-24 12:32] LABS: iSTAT Creatinine 0.9 mg/dl (0.6-1.3); iSTAT Hemoglobin 16.7 g/dl (14.0-18.0); iSTAT Ionized Calcium 1.17 mmol/l (1.12-1.32); iSTAT Potassium 3.7 mmol/L (3.3-5.0)
--- NOTE | 2020-01-24 12:33 | CT Scan Report ---
HEAD & NECK CTA HISTORY: Headache. Bilateral upper extremity weakness. Stroke evaluation TECHNIQUE: Multiaxial CT images of the head were performed following the intravenous administration o f contrast to evaluate the major cerebral vessels. Multiaxial CT images of the neck were also perform ed following the intravenous administration of contrast to evaluate the major cervical vessels. Maxim um intensity projection images were also obtained. A dose lowering technique was utilized adhering to the principles of ALARA. COMPARISON: Brain MRI 01/08/2010. FINDINGS: There is no mass, hematoma, midline shift, or acute infarct. Visualized intracranial internal carotid arteries, distal vertebral arteries, and basilar artery are widely patent. There is no significant s tenosis, occlusion, or aneurysm seen within the bilateral ACAs, MCAs, or weather teacher. Hypoplastic distal lef t vertebral artery. Persistent left posterior circulation which is considered to be a normal va riant. The aortic arch and proximal great vessels are widely patent. There is no significant stenosis, occ lusion, or dissection identified within the bilateral common carotid, internal carotid, or vertebral arteries. Hypoplastic left vertebral artery. IMPRESSION: 1. No significant stenosis, occlusion, or aneurysm within the [place]. 2. No significant stenosis, occlusion, or dissection identified within the carotid or vertebral arter ies. ACT 112: Negative or not required by law. Electronically signed by: Devante Baker M.D. 01/24/2020 12:32 PM
--- NOTE | 2020-01-24 12:33 | CT Scan Report ---
HEAD & NECK CTA HISTORY: Headache. Bilateral upper extremity weakness. Stroke evaluation TECHNIQUE: Multiaxial CT images of the head were performed following the intravenous administration o f contrast to evaluate the major cerebral vessels. Multiaxial CT images of the neck were also perform ed following the intravenous administration of contrast to evaluate the major cervical vessels. Maxim um intensity projection images were also obtained. A dose lowering technique was utilized adhering to the principles of ALARA. COMPARISON: Brain MRI 01/08/2010. FINDINGS: There is no mass, hematoma, midline shift, or acute infarct. Visualized intracranial internal carotid arteries, distal vertebral arteries, and basilar artery are widely patent. There is no significant s tenosis, occlusion, or aneurysm seen within the bilateral ACAs, MCAs, or assistant plant controller. Hypoplastic distal lef t vertebral artery. Persistent left posterior circulation which is considered to be a normal va riant. The aortic arch and proximal great vessels are widely patent. There is no significant stenosis, occ lusion, or dissection identified within the bilateral common carotid, internal carotid, or vertebral arteries. Hypoplastic left vertebral artery. IMPRESSION: 1. No significant stenosis, occlusion, or aneurysm within the [place]. 2. No significant stenosis, occlusion, or dissection identified within the carotid or vertebral arter ies. ACT 112: Negative or not required by law. Electronically signed by: Devante Baker M.D. 01/24/2020 12:32 PM
--- NOTE | 2020-01-24 12:54 | XRay Report ---
SINGLE VIEW CHEST CLINICAL HISTORY: Headache. FINDINGS: An AP, portable, upright chest radiograph is compared to study dated 01/01/2018. The examinat ion is degraded by portable technique and patient rotation. The heart is enlarged. The pulmonary vasc ulature is noncongested. Airspace opacities are present at both lung bases. No large pleural effusion or pneumothorax is seen. The bony thorax is grossly intact. IMPRESSION: 1. Cardiomegaly without radiographic evidence of congestive failure. 2. Airspace opacities are present at both lung bases. This could present atelectasis versus an infect ious/inflammatory pneumonitis. Clinical correlation will be required. ACT 112: Negative or not required by law. Electronically signed by: Jaron Magana M.D. 01/24/2020 12:53 PM
--- NOTE | 2020-01-24 13:27 | Magnetic Resonance Report ---
MRI OF THE BRAIN WITHOUT IV CONTRAST CLINICAL HISTORY: Headache. COMPARISON STUDY: CT of the brain dated 01/24/2020. TECHNIQUE: MRI of the brain was performed utilizing various T1 and T2-weighted sequences in the axial , sagittal, and coronal planes. IV contrast was not administered for this examination. FINDINGS: Brain parenchyma: The brain parenchyma is normal in appearance. There is no hemorrhage or mass effect . There is no restricted diffusion to suggest acute ischemia. Mejia-white matter differentiation is pr eserved. No extra-axial fluid collection is seen. The cerebellar tonsils are normal in configuration. Ventricles, sulci, and cisterns: Normal in configuration. Pituitary and sella: Partially empty sella is incidentally noted. Intracranial vasculature: Normal flow voids are maintained at the skull base. Orbits: The bony orbits are grossly intact. Orbital contents are normal in appearance. Sinuses and mastoids: Mild mucosal thickening is noted in the maxillary antra, the ethmoid sinuses, a nd the frontal sinuses. The mastoid air cells are well pneumatized. Calvarium: Unremarkable. Cervical cord: Partially visualized cervical spinal cord is normal in morphology and signal intensity . IMPRESSION: No acute intracranial abnormality. ACT 112: Negative or not required by law. Electronically signed by: Jaron Magana M.D. 01/24/2020 1:26 PM
--- NOTE | 2020-01-24 15:08 | History & Physical Report ---
Date of Service January 24, 2020 Assessment & Plan (1) CAD (coronary artery disease): (2) Elevated troponin: (3) Acute electrocardiogram changes: (4) Hypertensive urgency: -Admit to PCU -Patient was placed on a Cardizem drip due to BP of 243/115 at time of arrival into the ER, BP has since significantly improved, patient is now off nicardipine drip with BP staying at ~140/80 -Possible cardiac strain with ST changes in lateral leads after initiation of nicardipine gtt? -Troponin bumped from 0.020 to 0.299 within 1-1/2 hours, next troponin repeat at 1800 -Follows with Dr. Grier as an outpatient-will plan to hold off on cardiac cath at this time, patient is currently symptom-free, if return of any symptoms then may need to go to cardiac cath urgently -Last cardiac cath was performed December 2017 showing a mid LAD with 60% stenosis immediately distal to a large first diagonal branch also an apical subtotal occlusion of the LAD was noted at that time. - Continue ASA 81 mg, no further anticoagulation secondary to history of intracranial hemorrhage in 2009 -Patient did not tolerate rosuvastatin, broke out to a rash, currently maintains on pravastatin 20 mg, consider switch to atorvastatin pending lipid panel with am labs, also check a1c for staging purposes. -Consider addition on low dose BB for cardioprotective effects (5) Stroke: - hx of hemmorhagic stroke in 2009 - Resolved - Not on anticoagulation - Continue asa 81 mg daily (6) DVT prophylaxis: teds, ambulatory CODE: Full code Dispo: From home, likely to remain in the hospital x 1-2 days. History of Present Illness Primary Care Provider: Madhav Jang, This is a 59 yo M with PMhx of CAD involving the mid LAD without any stents, last cardiac cath in December 2017, pericarditis, stroke in 2009 without residual sx, HLD, diverticular disease and sleep apnea on CPAP HS, who presents with acute onset of headache which awoke him from sleep in the middle the night. He reports this morning he proceeded to do some light housework where he felt very worsening fatigue, numbness and tingling down bilateral upper extremities, became extremely sweaty, radiation of pain into the back, continued worsening of the headache, and presented to the ER. Upon arrival here to the ER patient found with a blood pressure of 243/115 at its highest, and was started on a nicardipine drip for concern for stroke with significant headache and hypertensive urgency with history. His troponin was noted to be 0.020 and upon recheck within 2 hours bumped to 0.299. BP is improved at 139/80 with HR of 64 while at bedside. The patient is currently symptom-free. Patient states that he does take daily aspirin every day as well as statin therapy. Allergies Allergy/AdvReac Type Severity Reaction Status Date / Time aspirin Allergy Intermediate Rash - see Verified 01/24/20 12:23 comments rosuvastatin Allergy Intermediate Rash - see Verified 01/24/20 12:23 comments Home Medications Home Medications Medication Instructions Recorded Confirmed Type aspirin [Aspir-81] 0 mg PO HS 03/19/19 01/24/20 History coenzyme Q10 [CoQ-10] 100 mg PO HS 05/29/19 01/24/20 History acetaminophen [Tylenol] 0 mg PO QID PRN 01/24/20 01/24/20 History pravastatin 20 mg PO HS 01/24/20 01/24/20 History Past Med/Surg History Social History Preferred Language: Georgian Communication Ability: Effective Screening Technician Required: No Beliefs That Will Affect Care: None Current Living Situation: Spouse Feels Safe at Home: Yes Safety Concerns: Feels Safe At This Time Smoking Status: Never smoker Second Hand Exposure: No ; Hx Alcohol Use: Yes Alcohol type: beer Hx Substance Use: No Review of Systems Review of Systems: Constitutional: No fever, sweats or chills Eyes: No diplopia, no worsening or blurred vision ENT: normal hearing, no trouble swallowing Respiratory: No cough, sputum, dyspnea at rest or on exertion Cardiovascular: As per HPI, currently chest pain free, without tightness or palpitations. Abdomen: No pain, nausea, vomiting, diarrhea or constipation Musculoskeletal: No joint pain, calf pain, swelling Neurologic: No weakness, numbness/tingling, or balance problems Psychiatric: No anxiety or depression Skin: No rash or itch Physical Exam Physical Exam: General: awake, alert, no apparent distress, not diaphoretic Head: Normocephalic, atraumatic ENT: PERRL, EOMI, no pharyngeal exudate, mucous membranes moist Chest: Clear to auscultation, on room air, no adventitious breath sounds Cardiac: Regular rate and rhythm, HR = 64, he is currently symptomatic with normal blood pressure, no murmur, no JVD, normal peripheral pulses, good capillary refill Abdominal: NABS x 4 quadrants, soft, nontender to palpation, no rebound, guarding or tenderness Extremities: Normal inspection, no peripheral edema or erythema, calfs nontender to palpation Psych: Normal mood and affect Neuro: AAO x 3, strength intact bilaterally and rated 5/5, no motor deficits, speech is clear, no peripheral sensory deficits Results & Data Results & Data ([facility]) Vital Signs (Past 12 Hours) Vital Signs Temp Pulse Resp BP Pulse Ox 01/24/20 14:45 64 139/80 96 01/24/20 14:30 64 149/82 H 95 01/24/20 14:15 63 141/65 H 94 01/24/20 14:01 68 151/95 H 92 01/24/20 13:47 68 151/85 H 95 01/24/20 13:40 68 169/84 H 94 01/24/20 13:35 66 158/85 H 95 01/24/20 13:31 65 156/90 H 96 01/24/20 13:25 66 162/83 H 94 01/24/20 13:22 67 177/90 H 95 01/24/20 12:46 77 171/79 H 91 01/24/20 12:40 76 175/85 H 91 01/24/20 12:35 76 179/94 H 91 01/24/20 12:30 78 190/97 H 94 01/24/20 12:25 80 181/89 H 93 01/24/20 12:20 76 183/97 H 96 01/24/20 12:17 60 192/114 H 97 01/24/20 11:56 63 243/115 H 99 01/24/20 11:47 36.5 C 64 20 212/111 H 100 Code Status & VTE Plan Code Status Full code - discssed with pt and family at bedside VTE Prophylaxis Plan VTE Prophylaxis will be ordered: Yes Supervising Physician Co-Signing Physician Notes Attending attestation Pt seen and examined in concert with JOSÉ Davidson In agreement with the documented findings as noted in the resident documentation with any exceptions or additions as noted here. Resting comfortably in bed with only complaint presently of feeling 'weird'. Resolution of paresthesias, HART, nausea/vomiting sensation. Reports that previous episode of hypertensive urgency with CVA presented similarly on discussion. On examination, S1/S2 nl RRR no MCG. CTAB. Abd NT/ND BS+ve Hypertensive urgency w/ elevated troponin and EKG change - admit to PCU/tele - cardiology consultation appreciated. Off nicardipine and tolerating nl BP. Per cardiology recommendation, will Plavix load and continue. Trend troponins q8. Continue statin therapy, ASA. Consider BB with cardiology recommendation for BP control. DVT PPX - TEDs CODE: Full code PG Care Time/CCT Total # of Minutes Spent Total Time Spent with Patient: Total time spent is greater than 50% in coordination of care (as documented) at patient's floor/unit and/or counseling patient: Coding Level of Care Code 29852 Initial Inpt Care Lvl 3 Diagnoses CAD (coronary artery disease) I25.10 Elevated troponin R74.8 Acute electrocardiogram changes R94.31 Hypertensive urgency I16.0 Stroke I63.9 DVT prophylaxis Z29.9
[2020-01-24] MEDS ORDERED: ACETAMINOPHEN 325 MG TAB PO PRN (15:45)
[2020-01-24] MEDS ORDERED: ONDANSETRON INJ 2 MG/ML 2 ML VIAL IV PRN (15:45)
--- NOTE | 2020-01-24 15:56 | Electrocardiogram Report ---
Test Reason : Blood Pressure : / mmHG Vent. Rate : 066 BPM Atrial Rate : 066 BPM P-R Int : 164 ms QRS Dur : 090 ms QT Int : 430 ms P-R-T Axes : 058 -27 110 degrees QTc Int : 450 ms Normal sinus rhythm with sinus arrhythmia Minimal voltage criteria for LVH, may be normal variant Abnormal ECG When compared with ECG of 21-MAR-2019 11:04, T wave inversion less evident in Lateral leads Confirmed by Adi Howell ([id number]) on 01/24/2020 3:56:27 PM Referred By: REFERRED SELF Confirmed By:Paramjit Howell
--- NOTE | 2020-01-24 16:01 | Electrocardiogram Report ---
Test Reason : Blood Pressure : / mmHG Vent. Rate : 065 BPM Atrial Rate : 065 BPM P-R Int : 166 ms QRS Dur : 102 ms QT Int : 442 ms P-R-T Axes : 039 -34 038 degrees QTc Int : 459 ms Normal sinus rhythm Left axis deviation Moderate voltage criteria for LVH, may be normal variant Poor R wave progression, consider anterior FL vs. lead placement vs. LVH Nonspecific ST abnormality Abnormal ECG When compared with ECG of 24-JAN-2020 11:55, (unconfirmed) T wave inversion no longer evident in Lateral leads Confirmed by Adi Howell ([id number]) on 01/24/2020 4:01:36 PM Referred By: REFERRED SELF Confirmed By:Paramjit Howell
[2020-01-24] MEDS ORDERED: CLOPIDOGREL BISULFATE 300 MG TAB PO ONE (18:00)
[2020-01-24] MEDS ORDERED: NON-FORMULARY MEDICATION (Coenzyme Q10 [Coq-10] 100 MG) PO SCH (21:00)
[2020-01-24] MEDS ORDERED: ASPIRIN 81 MG ECTAB PO SCH (21:00)
[2020-01-24] MEDS ORDERED: PRAVASTATIN SOD 20 MG TAB PO SCH (21:00)
[2020-01-25 02:03] LABS: Hematocrit (blood only) 43.4 % (42-52); Hemoglobin 15.1 g/dL (14.0-18.0); Mean Corpuscular Hemoglobin 32.2 pg (25-34); Mean Corpuscular Hgb Conc 34.8 g/dL (32-36); Mean Corpuscular Volume 92.5 fL (80-100); Mean Platelet Volume 9.7 fL (7.4-10.4); Platelet Count 251 K/uL (130-400); RDW Standard Deviation 44.4 fL (36.4-46.3); Red Blood Count 4.69 M/uL (4.7-6.1); White Blood Count 10.74 K/uL (4.8-10.8)
[2020-01-25 02:28] LABS: Albumin Level 3.6 gm/dl (3.4-5.0); BUN Creatinine Ratio 16.1 (10-20); Calcium 8.7 mg/dl (8.5-10.1); Creatinine Clr Calc Pharmacy 76.4 ml/min; Est GFR (African American) 84.7; Est GFR (Non-African American) 73.1
[2020-01-25 02:39] LABS: Bilirubin,Total 0.5 mg/dl (0.2-1); Globulin 3.7 gm/dl (2.5-4.0); Total Protein 7.3 gm/dl (6.4-8.2); Troponin I 0.452 ng/ml (0-0.045)
[2020-01-25 05:47] LABS: Estimated Average Glucose 100 mg/dl; Hemoglobin A1C 5.1 % (4.5-5.6)
[2020-01-25] MEDS ORDERED: CLOPIDOGREL BISULFATE 75 MG TAB PO SCH (09:00)
--- NOTE | 2020-01-25 11:38 | XCELERA ---
[id number] \\[id number]
--- NOTE | 2020-01-25 11:43 | Discharge Summary ---
Date of Service January 25, 2020 Admission HPI Per Admitting Provider This is a 59 yo M with PMhx of CAD involving the mid LAD without any stents, last cardiac cath in December 2017, pericarditis, stroke in 2009 without residual sx, HLD, diverticular disease and sleep apnea on CPAP HS, who presents with acute onset of headache which awoke him from sleep in the middle the night. He reports this morning he proceeded to do some light housework where he felt very worsening fatigue, numbness and tingling down bilateral upper extremities, became extremely sweaty, radiation of pain into the back, continued worsening of the headache, and presented to the ER. Upon arrival here to the ER patient found with a blood pressure of 243/115 at its highest, and was started on a nicardipine drip for concern for stroke with significant headache and hypertensive urgency with history. His troponin was noted to be 0.020 and upon recheck within 2 hours bumped to 0.299. BP is improved at 139/80 with HR of 64 while at bedside. The patient is currently symptom-free. Patient states that he does take daily aspirin every day as well as statin therapy. Admission Exam Per Admitting Provider General: awake, alert, no apparent distress, not diaphoretic Head: Normocephalic, atraumatic ENT: PERRL, EOMI, no pharyngeal exudate, mucous membranes moist Chest: Clear to auscultation, on room air, no adventitious breath sounds Cardiac: Regular rate and rhythm, HR = 64, he is currently symptomatic with normal blood pressure, no murmur, no JVD, normal peripheral pulses, good capillary refill Abdominal: NABS x 4 quadrants, soft, nontender to palpation, no rebound, guarding or tenderness Extremities: Normal inspection, no peripheral edema or erythema, calfs nontender to palpation Psych: Normal mood and affect Neuro: AAO x 3, strength intact bilaterally and rated 5/5, no motor deficits, speech is clear, no peripheral sensory deficits Principal Diagnosis HTN urgency Discharge Exam Constitutional WD/WN, vitals as above Respiratory normal respiratory effort, lungs clear to auscultation Cardiovascular RRR, no murmur, no edema Gastrointestinal (Abdomen) normal bowel sounds, soft, nontender, no hepatosplenomegaly Skin no rashes, warm and dry Psychiatric A+Ox3, euthymic affect Discharge Data Allergies Allergy/AdvReac Type Severity Reaction Status Date / Time aspirin Allergy Intermediate Rash - see Verified 01/24/20 12:23 comments rosuvastatin Allergy Intermediate Rash - see Verified 01/24/20 12:23 comments Consultations 01/24/20 13:55 ED Decision to Admit Stat 01/24/20 14:37 Consult Cardiology Stat 01/24/20 15:45 Consult Cardiology Routine Consult Case Management - Discharge Planning Routine Ordered Studies 01/24/20 11:51 CT angio head w con Stat CT angio neck with con Stat CT head/brain wo con Stat 01/24/20 12:10 MR brain wo con Stat Hospital Course (1) Hypertensive urgency: 59 yo M with PMhx of CAD involving the mid LAD without any stents, last cardiac cath in December 2017, pericarditis, stroke in 2009 without residual sx, HLD, diverticular disease and sleep apnea on CPAP admitted to hospital for acute care of headache and numbness/tingling with findings of T wave inversion and elevated troponin in the ED. Hypertensive urgency with elevated troponin and EKG changes: - CTA head and neck showed no significant stenosis, occlusion, or aneurysm within the [place]; No significant stenosis, occlusion, or dissection identified within the carotid or vertebral arteries. - MRI brain without findings consistent with stroke. - Initially troponin 0.06 with peak of 0.4 before further downtrending to 0.2 before discharge. - Was briefly on nicardipine drip with return to normotensive status and resolution of his headache. - Echocardiogram this admission read by Dr. Richard showed no new wall motion abnormalities, some mild LVH, no decreased LV function. - Further EKGs showed no further T wave inversions. - Likely demand ischemia due to hypertension. - Started on Plavix for discharge as well as metoprolol succinate 50mg daily. - Pt is allergic to aspirin (pruritic rash) and therefore will not take this. - F/u with Dr. Grier; pt will call Monday to schedule. HLD: - continue pravastatin and CoQ10 daily. (2) Hyperlipidemia: (3) Elevated troponin: Total Time Total Time Spent Total Time Spent (In Minutes): see attending attestation. Discharge Plan Discharge Items Patient Disposition: Home - Self-Care Reason For Visit: HYPERTENSIVE URGENCY,CAD,ST WAVE INVERSION Discharge Diagnosis: hypertensive urgency Activity: Per Instructions section Lifting: Gradually increase as tolerated Exercise/Sports: Gradually increase as tolerated Non-emergency contact: Primary Care Provider and Food Processing Chemist Call non-emergency contact if: you have any medication questions and your symptoms worsen Follow-up/Referrals: Madhav Jang, [Primary Care Provider] - Diet: Heart Healthy Addtl Attending Provider Instructions: You were admitted to the hospital to monitor your heart after having a very elevated blood pressure. You were given nicardipine, a medication to quickly bring your blood pressure to a normal level. You had some findings on EKG and your cardiac enzymes which at first were concerning for possible heart attack, so we admitted you to watch those numbers. With normalization of your blood pressure your EKG and your heart enzymes started to return to normal. The Echocardiogram of your heart (ultrasound) showed no acute findings consistent with a heart attack. Per cardiology recommendations you were started on Plavix daily to thin the blood to protect the heart from clots, as well as metoprolol for your blood pressure. Please find below your new medication regimens and doses: 1) Plavix 75mg daily. This should be taken at least until you see Dr. Grier again. If you start to get low before that point please call his office. 2) Metoprolol succinate 50mg daily. This should also be taken at least until you see Dr. Grier again. If you start to get low before that point please call his office. 3) Continue taking your cholesterol medication pravastatin and CoQ10. If you begin to develop chest pressure, shortness of breath, palpitations, feelings as if you are going to pass out, please come back to the hospital for acute care. Please call the office of Dr. Grier to schedule a follow up appointment in about 1 month. Pending Studies at Discharge: No Stand-Alone Forms: [facility] Service Seeking, Smoking Cessation Medications and DC Order Prescriptions: New clopidogrel 75 mg Tablet 75 mg PO QAM 30 Days Qty: 30 RF: 0 metoprolol succinate 50 mg capsule,sprinkle,ER 24hr 50 mg PO DAILY 30 Days Qty: 30 RF: 0 Continued coenzyme Q10 [CoQ-10] 100 mg Capsule 100 mg PO HS RF: 0 pravastatin 20 mg tablet 20 mg PO HS RF: 0 acetaminophen [Tylenol] 325 mg Tablet 0 mg PO QID PRN (Reason: Headache) RF: 0 Discontinued aspirin [Aspir-81] 81 mg Tablet,Delayed Release (Dr/Ec) 0 mg PO HS RF: 0 Discharge Orders: Discharge Order (Routine); Ordered 01/25/20 Ordered By: Amada Chou/Other Patient Handouts: Heart Disease Risk Admission Data Admit Date/Time: 01/24/20 14:56 Attending Provider: Isidoro Mckeon Admit Provider: Isidoro Mckeon Primary Care Provider: Madhav Jang Other Providers: Luis Grier ; Isidoro Mckeon Other Interventions: Discharge Summary Assessment (RN) Last Done: 01/25/20 11:53 DC Date/Time DO NOT enter until pt leaves facility: 01/25/20 12:51 Supervising Physician Co-Signing Physician Notes Attending attestation Pt seen and examined in concert with Dr. Ryder. In agreement with the documented findings as noted in the resident documentation with any exceptions or additions as noted here. Mild bilateral temporal headache on evaluation with some positional component, worse while bending/laying flat. On examination, S1/S2 nl RRR no MCG. CTAB. Abd NT/ND BS+ve, CNII-XII grossly intact, str 5/5 throughout upper and lower extremities Hypertensive urgency - EKG changes resolved, off antihypertensive medications - continue plavix on discharge. Follow up with Dr. Grier and primary care. Else see resident documentation as noted. Resident Activity Tracking Resident Involvement: Resident Care Provided Care Provided: Adult Hospital Medicine
--- NOTE | 2020-01-25 12:19 | Cardiology Consultation ---
Date of Consultation January 25, 2020 Assessment & Plan (1) Hypertensive urgency: The patient's blood pressure was well controlled with intravenous nicardipine. Suggest the addition of metoprolol succinate 50 mg daily to his regimen. Stable for hospital discharge. (2) Elevated troponin: Suspect this was a supply demand mismatch rather than coronary ischemia. The patient had no symptoms of chest discomfort. (3) CAD (coronary artery disease): Nonobstructive disease in the LAD noted at a cardiac catheterization in December 2017. (4) Hyperlipidemia: LDL cholesterol elevated 123. Could consider change to atorvastatin. The patient failed atorvastatin previously due to a drug induced rash. (5) LVH (left ventricular hypertrophy): Mild hypertrophy noted on today's echocardiogram. History of Present Illness Attending Physician: Isidoro Mckeon MD History of Present Illness Mr. Ellington is a 65-year-old male admitted yesterday with accelerated hypertension. This consultation was ordered to assist in his cardiac management. Of note, the patient typically follows with Dr. Grier in the outpatient setting. The patient was in his usual state of health until the morning of presentation. He awoke from sleep with severe occipital headache. As the day progressed, the patient noted extreme fatigue, intermittent diaphoresis, and paresthesias of his upper extremities. The patient became quite concerned and presented to the emergency room for further care. On arrival here, the patient had a blood pressure of 243/115. He was started on a nicardipine drip and admitted to the telemetry unit once his blood pressure was better controlled. Initial troponin was normal, however, repeat value was mildly elevated at 0.299. At no time has the patient experienced chest discomfort nor dyspnea. He further denies syncope, presyncope, PND, orthopnea, palpitations, lower extremity edema, and claudication. The patient does carry a history of nonobstructive coronary artery disease. A cardiac catheterization performed December 2017 noted a 60% mid LAD stenosis. There is S sub total stenosis and the very distal LAD. As above, the patient has never experienced exertional angina pectoris. Currently, patient is resting comfortably in bedside chair without complaints. He is anxious for hospital discharge. Past medical and surgical history 1. Coronary artery disease-see above 2. Hypertension 3. Hypercholesterolemia 4. Mild LVH 5. Mild aortic insufficiency 6. Mild mitral regurgitation 7. 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 Still alive in his 80s. Mother is 80 in doing well Siblings are healthy Review of systems A 10 point review systems was undertaken and negative except for that described above. Allergies Allergy/AdvReac Type Severity Reaction Status Date / Time aspirin Allergy Intermediate Rash - see Verified 01/24/20 12:23 comments rosuvastatin Allergy Intermediate Rash - see Verified 01/24/20 12:23 comments Home Medications Home Medications Medication Instructions Recorded Confirmed Type coenzyme Q10 [CoQ-10] 100 mg PO HS 05/29/19 01/24/20 History acetaminophen [Tylenol] 0 mg PO QID PRN 01/24/20 01/24/20 History pravastatin 20 mg PO HS 01/24/20 01/24/20 History clopidogrel 75 mg PO QAM 30 Days #30 tab 01/25/20 Rx metoprolol succinate 50 mg PO DAILY 30 Days #30 ea 01/25/20 Rx Patient History Social History Preferred Language: Argentine Communication Ability: Effective Rn Telehealth Required: No Beliefs That Will Affect Care: None marital status: Current Living Situation: Spouse Feels Safe at Home: Yes Safety Concerns: Feels Safe At This Time Smoking Status: Never smoker Second Hand Exposure: No ; Hx Alcohol Use: Yes Alcohol type: beer Hx Substance Use: No Physical Exam Physical Exam: In general this is a well-developed well-nourished white male in no acute distress. HEENT exam is negative. Neck is supple with full carotid upstrokes. There are no carotid bruits. Jugular venous pressure is flat at 90. There is no thyromegaly. Cardiovascular exam reveals a regular rhythm with a normal S1 and S2. No S3, S4, or murmurs are noted. Lungs are clear without rales, rhonchi, or wheezes. Abdomen is soft and nontender without bruits. Extremities reveal intact radial artery and posterior tibial pulses bilaterally. There is no peripheral edema. Results & Data ([facility]) Vital Signs (Past 12 Hours) Vital Signs Temp Pulse Pulse Resp BP Pulse Ox 01/25/20 11:53 36.8 C 60 18 145/78 H 93 01/25/20 08:39 53 L 01/25/20 08:10 36.8 C 60 18 145/78 H 93 01/25/20 04:10 36.4 C L 47 L 18 125/72 96 Laboratory Results CBC notes hemoglobin 15.1, hematocrit 43.4, white count 10.7, a platelet count of 270024. Electrolytes note a sodium of 136, potassium 4.0, chloride 105, bicarb 27, BUN 18, creatinine 1.1, and glucose of 104. Initial troponin was 0.02 with follow-up values of 0.299, 0.413, 0.452, and 0.214. LDL cholesterol is 123 with an HDL of 42. Diagnostic Findings Initial EKG noted normal sinus rhythm with a left axis deviation and inferolateral ST abnormality. Follow-up tracing noted improvement of the ST segments. Chest x-ray shows cardiomegaly. PG Care Time/CCT Total # of Minutes Spent Total Time Spent with Patient: Total time spent is greater than 50% in coordination of care (as documented) at patient's floor/unit and/or counseling patient: Coding Level of Care Code 52750 Office/OBS Consult Lvl 4 Diagnoses Hypertensive urgency I16.0 Elevated troponin R74.8 CAD (coronary artery disease) I25.10 Hyperlipidemia E78.5 LVH (left ventricular hypertrophy) I51.7
== END 2020-01-25 12:51 | disposition home or self-care (01) | DRG 305 ==
LOC: ED 11:45 → 2S 14:56
DX: I16.0 Hypertensive urgency; R74.8 Abnormal levels of other serum enzymes; I25.10 Atherosclerotic heart disease of native coronary artery without angina pectoris; I51.7 Cardiomegaly; Z79.82 Long term (current) use of aspirin; Z86.73 Personal history of transient ischemic attack (TIA), and cerebral infarction without residual deficits

== ENCOUNTER 2022-04-21 06:45 | Observation (INO) ==
[2022-04-21] MEDS ORDERED: dexAMETHasone**PF** 10 MG/ML VIAL IV ONE (06:58)
[2022-04-21] MEDS ORDERED: diphenhydrAMINE 50 MG/ML VIAL IV STA (06:58)
[2022-04-21] MEDS ORDERED: PROCHLORPERAZINE 5 MG/ML 2 ML VIAL IV STA (06:58)
[2022-04-21] MEDS ORDERED: PROCHLORPERAZINE 2 ML IV ONE (07:03)
[2022-04-21] MEDS ORDERED: LABETALOL HCL IV 5 MG/ML 20ML IV STA (07:05)
[2022-04-21 07:18] LABS: Basophils # (auto) 0.09 K/uL (0-0.2); Basophils % (auto) 0.8 %; Eosinophils # (auto) 0.12 K/uL (0-0.5); Hematocrit (blood only) 46.8 % (42-52); Hemoglobin 16.5 g/dL (14.0-18.0); Immature Granulocytes # (auto) 0.07 K/uL (0.00-0.02); Immature Granulocytes % (auto) 0.6 %; Lymphocytes # (auto) 1.82 K/uL (1.2-3.4); Lymphocytes % (auto) 15.9 %; Mean Corpuscular Hemoglobin 32.1 pg (25-34); Mean Corpuscular Hgb Conc 35.3 g/dL (32-36); Mean Corpuscular Volume 91.1 fL (80-100); Mean Platelet Volume 10.6 fL (7.4-10.4); Monocytes # (auto) 0.47 K/uL (0.11-0.59); Monocytes % (auto) 4.1 %; Neutrophils # (auto) 8.91 K/uL (1.4-6.5); Neutrophils % (auto) 77.6 %; Platelet Count 237 K/uL (130-400); RDW Coefficient of Variation 12.9 % (11.5-14.5); RDW Standard Deviation 42.5 fL (36.4-46.3); Red Blood Count 5.14 M/uL (4.7-6.1); White Blood Count 11.48 K/uL (4.8-10.8)
--- NOTE | 2022-04-21 07:20 | CT Scan Report ---
CT head/brain wo con CLINICAL HISTORY: Headache Technique: Contiguous axial CT images of the head were acquired from the base of the skull to the andrzej nicolle without intravenous contrast administration. Images were viewed in brain, subdural and bone [facility]. Automated dose lowering techniques and/or adjustment according to patient size were utilized for this exam. Comparison: Comparison is made to CTA head 01/24/2020 Findings: The ventricles, basal cisterns, and cerebral sulci are normal. There is no acute intracranial hemorrh age or evidence of acute territorial infarction. Neither mass effect, shift of the midline structures , nor abnormal extra-axial fluid collections are shown. Imaged portions of the paranasal sinuses and mastoid air cells are clear. The orbits appear normal. There are no acute fractures of the calvaria or scalp swelling. Impression: No acute intracranial hemorrhage, no evidence of acute territorial infarction or other acute intracra nial disease process. ACT 112: Negative or not required by law. Electronically signed by: Dom Rodney M.D. 04/21/2022 7:19 AM
[2022-04-21 07:37] LABS: Partial Thromboplastin Ratio 0.9; Partial Thromboplastin Time 25.2 Seconds (21.0-31.0); Prothrombin Time 10.2 Seconds (9.0-12.0)
[2022-04-21 07:41] LABS: Albumin Globulin Ratio 1.5 (0.9-2); Albumin Level 4.8 gm/dl (3.4-5.0); BUN Creatinine Ratio 20.5 (10-20); Bilirubin,Total 0.5 mg/dl (0.2-1.0); Calcium 9.8 mg/dl (8.5-10.1); Creatinine Clr Calc Pharmacy 100.2 ml/min; Est GFR (African American) 109.3 ml/min; Est GFR (Non-African American) 94.3 ml/min; Globulin 3.3 gm/dl (2.5-4.0); Potassium 4.2 mmol/L (3.5-5.1); Total Protein 8.1 gm/dl (6.0-8.3)
[2022-04-21 07:59] LABS: Lyme Ab IgG w/WB Rflx Negative (Negative); Lyme Ab IgM w/WB Rflx Negative (Negative)
[2022-04-21] MEDS ORDERED: ACETAMINOPHEN 1,000 MG/100 ML VIAL IV STA (08:05)
[2022-04-21] MEDS ORDERED: amLODIPine BESYLATE 5 MG TAB PO ONE ×2 (08:23→12:28)
--- NOTE | 2022-04-21 09:47 | Emergency Department Note ---
Impression & Plan Hypertensive urgency, Headache, History of cerebral hemorrhage ED Provider Note CHIEF COMPLAINT: Headache, hypertension HISTORY OF PRESENT ILLNESS: This 62-year-old male patient presents to the emergency department presents emergency department with complaints of a severe headache that began around 230 this morning and woke him from sleep. The patient states he has been experiencing headaches over the last month intermittently. The patient states he does suffer from hypertension and is seen by both his primary care physician and cardiology through [facility]. Patient came his medic patients and last took his metoprolol last evening. Patient denies any vomiting but states the headache is a 10/10. He was brought in by EMS and given 50 mcg of IV fentanyl without any improvement. He denies any falls or trauma to the head. He does have a history of "hemorrhagic stroke" several years ago according to his . REVIEW OF SYSTEMS: A review of systems was performed with positives and pertinent negatives listed in the history of present illness. 10 systems were reviewed and are otherwise negative. ALLERGIES: see below MEDICATIONS: see below PMH: see below SOCIAL HISTORY: see below DDx:Migraine headache, meningitis, sinusitis, CO exposure, ICH, SAH, infection, tumor, headache, sinus thrombosis, arterial dissection, as well as other pathologies. PHYSICAL EXAM: Vital signs reviewed. Noted to be markedly hypertensive General: Tree-qacvjgdno-gxwj-old male, in no significant distress. HEENT: No scleral icterus, PERRLA, neck supple. Atraumatic. No meningeal signs. Cardiovascular: Regular rate and rhythm, no extra sounds. Pulmonary: Clear to auscultation bilaterally, normal work of breathing. Abdomen: Soft, nontender, nondistended, positive bowel sounds. Musculoskeletal: Atraumatic, no peripheral edema. Neurologic: Patient awake alert and oriented x 3, speech is clear. Cranial nerves II through XII are grossly intact. Equal strength in the bilateral upper extremities. Skin: Warm, dry, no rash EMERGENCY DEPARTMENT COURSE/MDM: This patient with evaluated and appeared to be in no significant distress. IV access had been obtained by EMS. The patient was placed on the site monitor and noted to be markedly hypertensive with a systolic pressure of 227. The patient did receive 50 mcg of fentanyl prior to arrival without much improvement in his pain. He received 10 mg of IV labetalol for blood pressure management, IV Compazine, IV Benadryl and IV dexamethasone. CT imaging of the head was performed and is negative for acute intracranial abnormality per radiology. Patient's laboratory work is fairly reassuring. The patient's nurse did contact me for additional pain medication and on my reevaluation, the patient stated his headache was mostly gone he just felt "out of it." He was answering questions appropriately and his speech was not slurred. The patient did not have any vomiting. Patient was given 1 g of IV Tylenol. His blood pressure was notably improved but 157 systolic. No additional IV medications were administered but the patient was given 10 mg of p.o. Norvasc. Given the patient's history and marked elevation of his blood pressure, I feel it is in his best interest to be observed by the hospitalist se jones for further management. Dr. Negro was consulted for admission and further management. Patient and are aware of the plan and agree. MONITORING: An order for cardiac monitoring was placed and the patient is noted to be in a sinus bradycardia at 52 beats per minute. RADIOLOGY: See below EKG: Sinus rhythm with premature atrial complexes at 62 bpm. Left axis deviation, LVH. Normal ST segments to my interpretation. T wave abnormality in the anterior leads. QTC is 438. 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 Beliefs That Will Affect Care: None marital status: Current Living Situation: Spouse Other Information That Helps Us Care for You: No Feels Safe at Home: Yes Safety Concerns: Feels Safe At This Time Assistive Devices: CPAP Allergies Allergies Allergy/AdvReac Type Severity Reaction Status Date / Time aspirin Allergy Intermediate Rash - see Verified 01/24/20 12:23 comments rosuvastatin Allergy Intermediate Rash - see Verified 01/24/20 12:23 comments Home Meds Home Medications Medication Instructions Recorded Confirmed clopidogrel 75 mg tablet 75 mg PO DAILY 11/11/20 11/11/20 icosapent ethyl 1 gram capsule 2 g PO BID 11/11/20 11/11/20 (Vascepa) metoprolol succinate 50 mg 50 mg PO DAILY 11/11/20 11/11/20 tablet,extended release 24 hr pravastatin 80 mg tablet 80 mg PO HS 11/11/20 11/11/20 Results & Data (ED) Vital Signs Vital Signs - 24 hr 04/21/22 06:52 04/21/22 07:09 04/21/22 07:15 Temperature Temperature Source Pulse Rate 95 H 64 60 Pulse Rate [Apical] Pulse Rate from SpO2 Sensor 63 60 Pulse Rhythm Regular Pulse Rhythm [Apical] Pulse Strength Normal Pulse Strength [Apical] Respiratory Rate 18 16 26 H Respiratory Effort / Characteristics Non-Labored Spontaneous Respiratory Depth Normal Respiratory Pattern Regular Blood Pressure 277/133 H Blood Pressure [Left Arm] Blood Pressure Mean 181 Blood Pressure Mean [Left Arm] Blood Pressure Position Semi-fowlers Pulse Oximetry 98 97 96 Oxygen Delivery Method Room Air Sepsis Recent Fever Within 48 Hours No Sepsis New/Unexplained Change in Mental Status No Sepsis Action Taken by Nursing No Action Required 04/21/22 07:18 04/21/22 07:30 04/21/22 07:33 Temperature 36.5 C Temperature Source Oral Pulse Rate 60 Pulse Rate [Apical] 66 57 L Pulse Rate from SpO2 Sensor 61 Pulse Rhythm Pulse Rhythm [Apical] Regular Pulse Strength Pulse Strength [Apical] Normal Respiratory Rate 22 15 18 Respiratory Effort / Characteristics Non-Labored Respiratory Depth Normal Respiratory Pattern Blood Pressure Blood Pressure [Left Arm] 215/123 H 164/92 H Blood Pressure Mean Blood Pressure Mean [Left Arm] 153 116 Blood Pressure Position Pulse Oximetry 94 93 93 Oxygen Delivery Method Room Air Room Air Sepsis Recent Fever Within 48 Hours Sepsis New/Unexplained Change in Mental Status Sepsis Action Taken by Nursing 04/21/22 07:45 04/21/22 08:00 04/21/22 08:15 Temperature Temperature Source Pulse Rate 52 L 59 L 51 L Pulse Rate [Apical] Pulse Rate from SpO2 Sensor 54 L 61 51 L Pulse Rhythm Pulse Rhythm [Apical] Pulse Strength Pulse Strength [Apical] Respiratory Rate 12 20 12 Respiratory Effort / Characteristics Respiratory Depth Respiratory Pattern Blood Pressure 154/94 H Blood Pressure [Left Arm] 157/91 H Blood Pressure Mean 114 Blood Pressure Mean [Left Arm] 113 Blood Pressure Position Pulse Oximetry 95 95 94 Oxygen Delivery Method Sepsis Recent Fever Within 48 Hours Sepsis New/Unexplained Change in Mental Status Sepsis Action Taken by Nursing 04/21/22 08:30 04/21/22 08:45 04/21/22 09:00 Temperature Temperature Source Pulse Rate 48 L 50 L 51 L Pulse Rate [Apical] Pulse Rate from SpO2 Sensor 50 L 51 L 53 L Pulse Rhythm Pulse Rhythm [Apical] Pulse Strength Pulse Strength [Apical] Respiratory Rate 12 12 12 Respiratory Effort / Characteristics Respiratory Depth Respiratory Pattern Blood Pressure Blood Pressure [Left Arm] Blood Pressure Mean Blood Pressure Mean [Left Arm] Blood Pressure Position Pulse Oximetry 94 96 98 Oxygen Delivery Method Sepsis Recent Fever Within 48 Hours Sepsis New/Unexplained Change in Mental Status Sepsis Action Taken by Nursing 04/21/22 09:15 Temperature Temperature Source Pulse Rate 57 L Pulse Rate [Apical] Pulse Rate from SpO2 Sensor 53 L Pulse Rhythm Pulse Rhythm [Apical] Pulse Strength Pulse Strength [Apical] Respiratory Rate 12 Respiratory Effort / Characteristics Respiratory Depth Respiratory Pattern Blood Pressure 150/90 H Blood Pressure [Left Arm] Blood Pressure Mean 110 Blood Pressure Mean [Left Arm] Blood Pressure Position Pulse Oximetry 95 Oxygen Delivery Method Sepsis Recent Fever Within 48 Hours Sepsis New/Unexplained Change in Mental Status Sepsis Action Taken by Half-Way Medications Current Medication List: was personally reviewed by me Laboratory Data Attestation: I reviewed the patient's lab results. Result diagrams: 04/21/22 06:51 04/21/22 06:51 Lab Results 04/21/22 04/21/22 04/21/22 Range/Units 06:51 06:51 06:51 WBC 11.48 H (4.8-10.8) K/uL RBC 5.14 (4.7-6.1) M/uL Hgb 16.5 (14.0-18.0) g/dL Hct 46.8 (42-52) % MCV 91.1 (80-100) fL MCH 32.1 (25-34) pg MCHC 35.3 (32-36) g/dL RDW Std Deviation 42.5 (36.4-46.3) fL RDW Coeff of Kwasi 12.9 (11.5-14.5) % Plt Count 237 (130-400) K/uL MPV 10.6 H (7.4-10.4) fL Immature Gran % (Auto) 0.6 % Neut % (Auto) 77.6 % Lymph % (Auto) 15.9 % [place] % (Auto) 4.1 % Eos % (Auto) 1.0 % Baso % (Auto) 0.8 % Neut # (Auto) 8.91 H (1.4-6.5) K/uL Lymph # (Auto) 1.82 (1.2-3.4) K/uL [place] # (Auto) 0.47 (0.11-0.59) K/uL Eos # (Auto) 0.12 (0-0.5) K/uL Baso # (Auto) 0.09 (0-0.2) K/uL Immature Gran # (Auto) 0.07 H (0.00-0.02) K/uL ESR 21 H (0-20) mm/hr PT 10.2 (9.0-12.0) Seconds INR 1.0 (0.9-1.1) APTT 25.2 (21.0-31.0) Seconds PTT Ratio 0.9 Sodium (136-145) mmol/L Potassium (3.5-5.1) mmol/L Chloride (98-107) mmol/L Carbon Dioxide (21-32) mmol/L Anion Gap (3-11) BUN (6-23) mg/dl Creatinine (0.6-1.4) mg/dl Est Cr Clr Drug Dosing ml/min Est GFR ( Amer) ml/min Est GFR (Non-Af Amer) ml/min BUN/Creatinine Ratio (10-20) Glucose (70-99(Fasting)) mg/dl Calcium (8.5-10.1) mg/dl Total Bilirubin (0.2-1.0) mg/dl AST (13-39) U/L ALT (7-52) U/L Alkaline Phosphatase (34-104) U/L Total Protein (6.0-8.3) gm/dl Albumin (3.4-5.0) gm/dl Globulin (2.5-4.0) gm/dl Albumin/Globulin Ratio (0.9-2) Lyme Disease IgG Ab (Negative) Lyme Disease IgM Ab (Negative) SARS-CoV-2, RNA, NAAT (NEGATIVE) 04/21/22 04/21/22 04/21/22 Range/Units 06:51 06:51 07:18 WBC (4.8-10.8) K/uL RBC (4.7-6.1) M/uL Hgb (14.0-18.0) g/dL Hct (42-52) % MCV (80-100) fL MCH (25-34) pg MCHC (32-36) g/dL RDW Std Deviation (36.4-46.3) fL RDW Coeff of Kwasi (11.5-14.5) % Plt Count (130-400) K/uL MPV (7.4-10.4) fL Immature Gran % (Auto) % Neut % (Auto) % Lymph % (Auto) % [place] % (Auto) % Eos % (Auto) % Baso % (Auto) % Neut # (Auto) (1.4-6.5) K/uL Lymph # (Auto) (1.2-3.4) K/uL [place] # (Auto) (0.11-0.59) K/uL Eos # (Auto) (0-0.5) K/uL Baso # (Auto) (0-0.2) K/uL Immature Gran # (Auto) (0.00-0.02) K/uL ESR (0-20) mm/hr PT (9.0-12.0) Seconds INR (0.9-1.1) APTT (21.0-31.0) Seconds PTT Ratio Sodium 139 (136-145) mmol/L Potassium 4.2 (3.5-5.1) mmol/L Chloride 105 (98-107) mmol/L Carbon Dioxide 26 (21-32) mmol/L Anion Gap 8 (3-11) BUN 17 (6-23) mg/dl Creatinine 0.83 (0.6-1.4) mg/dl Est Cr Clr Drug Dosing 100.2 ml/min Est GFR ( Amer) 109.3 ml/min Est GFR (Non-Af Amer) 94.3 ml/min BUN/Creatinine Ratio 20.5 H (10-20) Glucose 124 H (70-99(Fasting)) mg/dl Calcium 9.8 (8.5-10.1) mg/dl Total Bilirubin 0.5 (0.2-1.0) mg/dl AST 25 (13-39) U/L ALT 28 (7-52) U/L Alkaline Phosphatase 64 (34-104) U/L Total Protein 8.1 (6.0-8.3) gm/dl Albumin 4.8 (3.4-5.0) gm/dl Globulin 3.3 (2.5-4.0) gm/dl Albumin/Globulin Ratio 1.5 (0.9-2) Lyme Disease IgG Ab Negative (Negative) Lyme Disease IgM Ab Negative (Negative) SARS-CoV-2, RNA, NAAT NEGATIVE (NEGATIVE) Administered Medications Discontinued Medications Amlodipine Besylate (Amlodipine Besylate 5 Mg Tab) 10 mg PO NOW ONE Stop: 04/21/22 08:24 Last Admin: 04/21/22 08:35 Dose: 10 mg Documented by: [id number] Amlodipine Besylate (Amlodipine Besylate 5 Mg Tab) 10 mg PO NOW ONE Stop: 04/21/22 12:29 Last Admin: 04/21/22 13:08 Dose: Not Given Documented by: [id number] Dexamethasone Sodium Phosphate (DexamethasonePf 10 Mg/Ml Vial) 10 mg IV NOW ONE Stop: 04/21/22 06:59 Last Admin: 04/21/22 07:13 Dose: 10 mg Documented by: [id number] Diphenhydramine HCl (Diphenhydramine 50 Mg/Ml Vial) 25 mg IV NOW STA Stop: 04/21/22 06:59 Last Admin: 04/21/22 07:13 Dose: 25 mg Documented by: [id number] Prochlorperazine (Compazine) 2 mls @ 1 mls/min IV ONE ONE Stop: 04/21/22 07:04 Last Admin: 04/21/22 07:13 Dose: 1 mls/min Documented by: [id number] Acetaminophen (Ofirmev) 1,000 mg in 100 mls @ 400 mls/hr IV NOW STA Stop: 04/21/22 08:19 Last Infusion: 04/21/22 08:27 Dose: 0 mls/hr Documented by: [id number] Admin: 04/21/22 08:12 Dose: 400 mls/hr Documented by: [id number] Labetalol HCl (Labetalol Hcl Iv 5 Mg/Ml 20ml) 10 mg IV NOW STA Stop: 04/21/22 07:06 Last Admin: 04/21/22 07:13 Dose: 10 mg Documented by: [id number] Cosigned by: [id number] Prochlorperazine (Prochlorperazine 5 Mg/Ml 2 Ml Vial) 10 mg IV NOW STA Stop: 04/21/22 06:59 Last Admin: 04/21/22 07:13 Dose: 10 mg Documented by: [id number] Imaging Data Radiologist's Impression: Head CT 04/21/22 06:51 CT head/brain wo con CLINICAL HISTORY: Headache Technique: Contiguous axial CT images of the head were acquired from the base of the skull to the vertex without intravenous contrast administration. Images were viewed in brain, subdural and bone windows. Automated dose lowering techniques and/or adjustment according to patient size were utilized for this exam. Comparison: Comparison is made to CTA head 01/24/2020 Findings: The ventricles, basal cisterns, and cerebral sulci are normal. There is no acute intracranial hemorrhage or evidence of acute territorial infarction. Neither mass effect, shift of the midline structures, nor abnormal extra-axial fluid collections are shown. Imaged portions of the paranasal sinuses and mastoid air cells are clear. The orbits appear normal. There are no acute fractures of the calvaria or scalp swelling. Impression: No acute intracranial hemorrhage, no evidence of acute territorial infarction or other acute intracranial disease process. ACT 112: Negative or not required by law. Electronically signed by: Dom Rodney M.D. 04/21/2022 7:19 AM Blood Pressure Blood Pressure Findings: Elevated blood pressure Blood Pressure Disposition: further management by hospitalist Discharge Plan Visit Data Chief Complaint: Hypertension ED Provider: Parisa Rojas Discharge Problem: Hypertensive urgency, Headache, History of cerebral hemorrhage Patient Disposition: Admitted As Inpatient Discharge Instructions Interventions: ED Discharge Assessment Last Done: 04/21/22 12:27 Discharge Problem: Headache Qualifiers: Headache type: unspecified Headache chronicity pattern: acute headache Intractability: intractable Qualified Code(s): R51.9 - Headache, unspecified
--- NOTE | 2022-04-21 09:48 | History & Physical Report ---
Date of Service April 21, 2022 History of Present Illness Primary Care Provider: Madhav Jang DO Allergies Allergy/AdvReac Type Severity Reaction Status Date / Time aspirin Allergy Intermediate Rash - see Verified 01/24/20 12:23 comments rosuvastatin Allergy Intermediate Rash - see Verified 01/24/20 12:23 comments Home Medications Medication Instructions Recorded Confirmed Type clopidogrel 75 mg tablet 75 mg PO DAILY 11/11/20 11/11/20 History icosapent ethyl 1 gram capsule 2 g PO BID 11/11/20 11/11/20 History (Vascepa) metoprolol succinate 50 mg 50 mg PO DAILY 11/11/20 11/11/20 History tablet,extended release 24 hr pravastatin 80 mg tablet 80 mg PO HS 11/11/20 11/11/20 History Past Med/Surg History Medical History (Updated 04/21/22 @ 09:47 by Parisa Rojas MD) Cardiac murmur Diverticular disease Hyperlipidemia Sleep apnea CPAP Stroke 2009-NO RESIDUAL EFFECTS-NO ISSUES SINCE Surgical History History of cardiac cath X 2-NO STENTS-12/2017-[facility] History of carpal tunnel release LEFT Trigger finger LEFT HAND Social History Smoking Status: Never smoker Second Hand Exposure: No; Hx Alcohol Use: Yes Alcohol type: beer Hx Substance Use: No Preferred Language: Tajik Communication Ability: Effective 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 Beliefs That Will Affect Care: None marital status: Current Living Situation: Spouse Feels Safe at Home: Yes Assistive Devices: CPAP Results & Data Results & Data ([facility]) Vital Signs (Past 12 Hours) Vital Signs Temp Pulse Pulse Resp BP BP Pulse Ox 04/21/22 09:15 57 L 12 150/90 H 95 04/21/22 09:00 51 L 12 98 04/21/22 08:45 50 L 12 96 04/21/22 08:30 48 L 12 94 04/21/22 08:15 51 L 12 157/91 H 94 04/21/22 08:00 59 L 20 154/94 H 95 04/21/22 07:45 52 L 12 95 04/21/22 07:33 57 L 18 164/92 H 93 04/21/22 07:30 60 15 93 04/21/22 07:18 36.5 C 66 22 215/123 H 94 04/21/22 07:15 60 26 H 96 04/21/22 07:09 64 16 97 04/21/22 06:52 95 H 18 277/133 H 98 PG Care Time/CCT Total # of Minutes Spent Total Time Spent with Patient: Total time spent is greater than 50% in coordination of care (as documented) at patient's floor/unit and/or counseling patient: Coding
[2022-04-21] MEDS ORDERED: ONDANSETRON INJ 2 MG/ML 2 ML VIAL IV PRN (12:28)
--- NOTE | 2022-04-21 12:48 | History & Physical Report ---
Date of Service April 21, 2022 Assessment & Plan (1) Hypertensive urgency: Plan: Presents to the hospital with headache and a SBP of 220 Received Labetalol in the ED, with improvement in BP Patient not on any home BP meds, I will start him on Amlodipine, 10mg daily Monitor BP (2) Headache: Plan: Probably due to elevated BP Better following control of BP CT head did not show any acute pathology (3) History of cerebral hemorrhage: Plan: No residual deficits Plan: Likely d/c in the next 24 hrs Admission and Anticipated Discharge Date Admission Date: April 21, 2022 History of Present Illness Chief Complaint: Headache Primary Care Provider: Madhav Jang DO This is a 62-year-old male with a hx of KRISHNA on home CPAP, HTN, hemorrhagic CVA, who was brought to the hospital on account of intractable headache. He said the headache was severe, started in the morning of presentation. He describes it as generalised, pounding. Denies blurry vision, but complained of nausea and vomiting. The patient states he has been experiencing headaches over the last month intermittently. The patient states he does suffer from hypertension and is seen by both his primary care physician and cardiology through [facility]. In the ED, his BP was found to be elevated, systolic 220 mmhg.He received labetalol, with improvement in his BP to [address] head did not show any acute intracranial pathology. he will be admitted to the hopsital for further mgt. Allergies Allergy/AdvReac Type Severity Reaction Status Date / Time aspirin Allergy Intermediate Rash - see Verified 01/24/20 12:23 comments rosuvastatin Allergy Intermediate Rash - see Verified 01/24/20 12:23 comments Home Medications Medication Instructions Recorded Confirmed Type clopidogrel 75 mg tablet 75 mg PO DAILY 11/11/20 11/11/20 History icosapent ethyl 1 gram capsule 2 g PO BID 11/11/20 11/11/20 History (Vascepa) metoprolol succinate 50 mg 50 mg PO DAILY 11/11/20 11/11/20 History tablet,extended release 24 hr pravastatin 80 mg tablet 80 mg PO HS 11/11/20 11/11/20 History Past Med/Surg History Medical History (Updated 04/21/22 @ 09:47 by Parisa Rojas MD) Cardiac murmur Diverticular disease Hyperlipidemia Sleep apnea CPAP Stroke 2009-NO RESIDUAL EFFECTS-NO ISSUES SINCE Surgical History History of cardiac cath X 2-NO STENTS-12/2017-[facility] History of carpal tunnel release LEFT Trigger finger LEFT HAND Social History Smoking Status: Never smoker Second Hand Exposure: No; Hx Alcohol Use: Yes Alcohol type: beer Hx Substance Use: No Preferred Language: Martiniquais Communication Ability: Effective Bond Runner Required: No Beliefs That Will Affect Care: None marital status: Current Living Situation: Spouse Feels Safe at Home: Yes Assistive Devices: CPAP Review of Systems Review of Systems: All systems reviewed are negative, apart from the ones contained in the history. Physical Exam Physical Exam: The patient is awake, alert and oriented 3, well developed and well nourished, normocephalic and atraumatic, lying in bed and in no acute distress. HEENT--PERRL, EOMI, mucous membranes and oropharynx mildly dry Neck--supple. No JVD. No bruits. Thyroid normal, trachea midline, no adenopathy. Heart--normal S1 and S2. No murmurs, rubs or gallops. Lungs--clear bilaterally, no respiratory distress, no accessory muscle use. Abdomen--normal bowel sounds and soft. Mild epigastric and left sided abdominal pain Extremities--no cyanosis or clubbing. No edema. Dermatologic--normal skin turgor, normal color, no abnormal lymph nodes, no rash. Neurologic--cranial nerves II through XII grossly intact. Rheumatologic--normal range of motion. Psychiatric--normal affect. Results & Data Results & Data ([facility]) Vital Signs (Past 12 Hours) Vital Signs Temp Pulse Pulse Resp BP BP Pulse Ox 04/21/22 11:53 64 16 155/82 H 95 04/21/22 09:15 57 L 12 150/90 H 95 04/21/22 09:00 51 L 12 98 04/21/22 08:45 50 L 12 96 04/21/22 08:30 48 L 12 94 04/21/22 08:15 51 L 12 157/91 H 94 04/21/22 08:00 59 L 20 154/94 H 95 04/21/22 07:45 52 L 12 95 04/21/22 07:33 57 L 18 164/92 H 93 04/21/22 07:30 60 15 93 04/21/22 07:18 97.7 F 66 22 215/123 H 94 04/21/22 07:15 60 26 H 96 04/21/22 07:09 64 16 97 04/21/22 06:52 95 H 18 277/133 H 98 Code Status & VTE Plan VTE Prophylaxis Plan VTE Prophylaxis will be ordered: Yes PG Care Time/CCT Total # of Minutes Spent Total Time Spent with Patient: Total time spent is greater than 50% in coordination of care (as documented) at patient's floor/unit and/or counseling patient: Coding Level of Care Code INT OBSERVATION CARE 70M LVL 3 Diagnoses Hypertensive urgency I16.0 Headache R51.9 Headache chronicity pattern: acute headache Headache type: unspecified Intractability: intractable History of cerebral hemorrhage Z86.79 Time Spent (min) 35 (1) Headache Headache chronicity pattern: acute headache Headache type: unspecified Intractability: intractable Qualified Code(s): R51.9 - Headache, unspecified
[2022-04-21] MEDS: ACETAMINOPHEN 325 MG TAB PO PRN (16:56)
[2022-04-22] MEDS: ACETAMINOPHEN 325 MG TAB PO PRN ×2 (05:44→10:19)
--- NOTE | 2022-04-22 07:36 | Electrocardiogram Report ---
Test Reason : Blood Pressure : / mmHG Vent. Rate : 062 BPM Atrial Rate : 062 BPM P-R Int : 162 ms QRS Dur : 092 ms QT Int : 432 ms P-R-T Axes : 014 -39 117 degrees QTc Int : 438 ms Sinus rhythm with Premature atrial complexes Left axis deviation Moderate voltage criteria for LVH, may be normal variant Abnormal ECG When compared with ECG of 24-JAN-2020 13:31, Premature atrial complexes are now Present Nonspecific T wave abnormality no longer evident in Inferior leads T wave inversion now evident in Lateral leads Confirmed by Frandy Larson ([id number]) on 04/22/2022 7:35:50 AM Referred By: REFERRED SELF Confirmed By:Frandy Larson
[2022-04-22] MEDS ORDERED: amLODIPine BESYLATE 5 MG TAB PO SCH ×2 (09:00)
--- NOTE | 2022-04-22 12:53 | Discharge Summary ---
Date of Service April 22, 2022 Admission HPI Per Admitting Provider This is a 62-year-old male with a hx of KRISHNA on home CPAP, HTN, hemorrhagic CVA, who was brought to the hospital on account of intractable headache. He said the headache was severe, started in the morning of presentation. He describes it as generalised, pounding. Denies blurry vision, but complained of nausea and vomiting. The patient states he has been experiencing headaches over the last month intermittently. The patient states he does suffer from hypertension and is seen by both his primary care physician and cardiology through [facility]. In the ED, his BP was found to be elevated, systolic 220 mmhg.He received labetalol, with improvement in his BP to [address] head did not show any acute intracranial pathology. [facility]. Principal Diagnosis HTN urgency Discharge Exam The patient is awake, alert and oriented 3, well developed and well nourished, normocephalic and atraumatic, lying in bed and in no acute distress. HEENT--PERRL, EOMI, mucous membranes and oropharynx mildly dry Neck--supple. No JVD. No bruits. Thyroid normal, trachea midline, no adenopathy. Heart--normal S1 and S2. No murmurs, rubs or gallops. Lungs--clear bilaterally, no respiratory distress, no accessory muscle use. Abdomen--normal bowel sounds and soft. Mild epigastric and left sided abdominal pain Extremities--no cyanosis or clubbing. No edema. Dermatologic--normal skin turgor, normal color, no abnormal lymph nodes, no rash. Neurologic--cranial nerves II through XII grossly intact. Rheumatologic--normal range of motion. Psychiatric--normal affect. Discharge Data Allergies Allergy/AdvReac Type Severity Reaction Status Date / Time aspirin Allergy Intermediate Rash - see Verified 01/24/20 12:23 comments rosuvastatin Allergy Intermediate Rash - see Verified 01/24/20 12:23 comments Consultations 04/21/22 09:39 ED Decision to Admit Stat Ordered Studies 04/21/22 06:51 CT head/brain wo con Stat Hospital Course (1) Hypertensive urgency: Resolved D/C on Amlodipine 10mg daily (2) Headache: Probably due to elevated BP Better following control of BP CT head did not show any acute pathology (3) History of cerebral hemorrhage: No residual deficits Likely d/c in the next 24 hrs Total Time Total Time Spent Total Time Spent (In Minutes): 35 Discharge Plan Discharge Items Patient Disposition: Home - Self-Care Reason For Visit: HEADACHE Discharge Diagnosis: HTN Urgency Activity: Resume your previous activity Non-emergency contact: Primary Care Provider Call non-emergency contact if: you have any medication questions Follow-up/Referrals: Madhav Jang, DO [Primary Care Provider] - Diet: Regular Addtl Attending Provider Instructions: please make appointment to follow up with your regular doctor Pending Studies at Discharge: No Stand-Alone Forms: [facility], Smoking Cessation Medications and DC Order Prescriptions: New amlodipine [Norvasc] 5 mg Tablet 10 mg PO QAM 30 Days Qty: 30 RF: 0 Continued clopidogrel 75 mg tablet 75 mg PO DAILY RF: 0 pravastatin 80 mg tablet 80 mg PO HS RF: 0 icosapent ethyl [Vascepa] 1 gram capsule 2 g PO BID RF: 0 Discontinued metoprolol succinate 50 mg tablet extended release 24 hr 50 mg PO DAILY RF: 0 Discharge Orders: Discharge Order (Routine); Ordered 04/22/22 Ordered By: Matty Hicks Admission Data Admit Date/Time: 04/21/22 10:40 Attending Provider: Matty Hicks Admit Provider: Matty Hicks Primary Care Provider: Madhav Jang Other Providers: Luis Grier ; Cezar Negro Other Interventions: Discharge Summary Assessment (RN) Last Done: 04/22/22 11:00 Coding Level of Care Code D/C DAY MANAGEMENT >30 MINS Diagnoses Hypertensive urgency I16.0 Headache R51.9 Headache chronicity pattern: acute headache Headache type: unspecified Intractability: intractable History of cerebral hemorrhage Z86.79 Time Spent (min) 35
== END 2022-04-22 11:37 | disposition home or self-care (01) ==
LOC: ED 06:45 → EDINP 06:45 → 2S 16:45